=== PATIENT | female | born 1940 | race Caucasian/White ===

== ENCOUNTER → 2023-07-21 09:38 | Outpatient (REF) | payer MEDICARE, OTHER, SELFPAY ==
[2023-07-21 12:47] LABS: ALT (SGPT) 16 U/L (0-35); AST (SGOT) 24 U/L (14-36); Albumin 4.4 g/dl (3.5-5.0); Alkaline Phosphatase 79 U/L (38-126); Blood Urea Nitrogen 18 mg/dl (7-17); Calcium 9.6 mg/dl (8.4-10.2); Carbon Dioxide 24 mmol/L (22-30); Chloride 104 mmol/L (98-107); Glucose 84 mg/dl (70-99); HDL Cholesterol 71 mg/dl; LDL Cholesterol, Calculated 101 mg/dl; Potassium 4.4 mmol/L (3.5-5.1); Sodium 137 mmol/L (135-145); Total Bilirubin 0.8 mg/dl (0.2-1.3); Total Cholesterol 194 mg/dl (50-199); Total Protein 6.6 g/dl (6.3-8.2); Triglyceride 114 mg/dl (10-149); Very Low Density Lipoprotein 22 mg/dl (0-30); eGFR 50.48
== END ==
LOC: HWLAB 09:38
PROVIDERS: ATTENDING PHYSICIAN Family Medicine
DX: E78.2 Mixed hyperlipidemia (principal); R73.01 Impaired fasting glucose
CPT/HCPCS: 36415; 80053; 80061

== ENCOUNTER → 2024-02-08 09:58 | Outpatient (REF) | payer MEDICARE, OTHER, SELFPAY ==
[2024-02-08 16:26] LABS: Urine Albumin Trace (Neg - Trace); Urine Bilirubin 1+ (Negative); Urine Character Very Cloudy (Clear); Urine Color Yellow; Urine Glucose Negative (Negative); Urine Ketone Trace (Negative); Urine Leukocyte 2+ (Negative); Urine Nitrite Negative (Negative); Urine Occult Blood 1+ (Negative); Urine Specific Gravity 1.025 (<1.030); Urine Urobilinogen Negative (Neg - 1+)
[2024-02-08 16:49] LABS: Urine Amorphous Seen; Urine Bacteria Few (Negative); Urine Red Blood Cell 0-2 /HPF (0-2); Urine Squamous Cell 26-30 /LPF (Few); Urine Urothelial Cell 0-2 /LPF (FEW); Urine White Cell 50-60 /HPF (0-5)
== END ==
LOC: HWLAB 09:58
PROVIDERS: ATTENDING PHYSICIAN Family Medicine
DX: N30.91 Cystitis, unspecified with hematuria (principal)
CPT/HCPCS: 36415; 81003; 81015; 87086

== ENCOUNTER 2024-04-10 09:37 | Inpatient (IN) | payer MEDICARE, OTHER, SELFPAY ==
[2024-04-09] VITALS (12 sets, daily range): BP systolic 116–182; BP diastolic 45–98; BMI 26.5; BMI 25.6
--- NOTE | 2024-04-09 11:04 | EDRN ---
Noted on arrival several bruises on L arm from EMS IV attempts Per Jeannine SHIN.
[2024-04-09 11:06] LABS: % Basophils 0.5 % (0-2); % Eosinophils 0.2 % (0-6); % Immature Granulocytes 0.2 % (0-0.5); % Lymphocytes 9.8 % (20.5-51.1); % Monocytes 4.3 % (1.7-9.3); Absolute Basophils 0.1 10^3/uL (0-0.2); Absolute Lymphocytes 0.9 10^3/uL (1.2-3.4); Absolute Monocytes 0.4 10^3/uL (0.1-0.6); Absolute Neutrophils 8.1 10^3/uL (1.4-6.5); Hematocrit 38.3 % (37.0-47.0); Hemoglobin 13.2 g/dL (12.0-16.0); Mean Corp Hgb Conc. 34.5 g/dL (33.0-37.0); Mean Corpuscular Volume 84.2 fL (81.0-99.0); Mean Platelet Volume 8.9 fL (7.4-10.4); Nucleated Red Blood Cells % 0 %; Platelet Count 168 10^3/uL (130-400); Red Blood Cell Count 4.55 10^6/uL (4.20-5.40); Red Cell Dist. Width 13.6 % (11.5-14.5); White Blood Cell Count 9.5 10^3/uL (4.8-10.8)
[2024-04-09 11:17] LABS: ALT (SGPT) 17 U/L (0-35); AST (SGOT) 26 U/L (14-36); Albumin 4.1 g/dl (3.5-5.0); Alkaline Phosphatase 67 U/L (38-126); Blood Urea Nitrogen 19 mg/dl (7-17); Calcium 9.7 mg/dl (8.4-10.2); Carbon Dioxide 25 mmol/L (22-30); Chloride 104 mmol/L (98-107); Glucose 105 mg/dl (70-99); Potassium 4.2 mmol/L (3.5-5.1); Sodium 139 mmol/L (135-145); Total Bilirubin 0.9 mg/dl (0.2-1.3); Total Protein 6.1 g/dl (6.3-8.2); eGFR 50.17
[2024-04-09 12:21] LABS: Urine Albumin Trace (Neg - Trace); Urine Bilirubin Negative (Negative); Urine Character Clear (Clear); Urine Glucose 3+ (Negative); Urine Ketone Trace (Negative); Urine Leukocyte Trace (Negative); Urine Nitrite Negative (Negative); Urine Occult Blood 4+ (Negative); Urine Urobilinogen Negative (Neg - 1+)
[2024-04-09 12:22] LABS: Urine Color Yellow
[2024-04-09 12:35] LABS: Urine Bacteria Many (Negative); Urine Squamous Cell 16-20 /LPF (Few)
--- NOTE | 2024-04-09 13:21 | ED.GENMED ---
History of Present Illness
General
Chief Complaint: Weakness
Source: patient
Exam Limitations: none
Time Seen by Provider: 04/09/24 11:24
Nursing documentation reviewed up to this point in time: agreed with
History of Present Illness
History of Present Illness:
Patient presents to ED from senior care, secondary to weakness noted by staff member this morning. Per report and family, patient was unable to set up and ambulate independently, which she does routinely. Upon arrival, patient however, is without
any complaints. Denies headache. Denies dizziness. Denies loss of sensation or weakness. Denies recent change in medications or diet. Denies previous history of similar symptoms. Patient is currently taking Eliquis daily, secondary to
incidental thrombus noted in her heart during echocardiogram.
Past History
Past History
ED Past Medical History: HTN and Hypercholesterolemia
ED Past Surgical History: Orthopedic
Social History
Tobacco: Non-smoker
Alcohol: Occasional
Drug: None
Personal:
Living: with family
Employment: Retired
Review of Systems
Review of Systems
Allergies reviewed?: Yes
All Other Systems: ROS reviewed and negative except as documented in HPI and ROS
Constitutional: Reports no symptoms; Denies fever
Respiratory: Reports no symptoms
Cardiac: Reports no symptoms
ABD/GI: Reports no symptoms
Musculoskeletal: Reports no symptoms
Skin: Reports no symptoms
Neurological: Reports weakness
Phy Exam
Physical Exam
Physical Exam:
Physical Exam
General: no apparent distress, not acutely ill. afebrile
Head: nc/at. eomi
Neck: supple. normal range of motion.
Heart: s1/s2 regular rate and rhythm, no murmur. equal radial pulses.
Lungs: no acute respiratory distress. clear bilaterally
Abdomen: normal bowel sounds. not tender.
Neuro: alert and oriented. no focal neurological deficits. normal speech.
Skin: no rash
Psychiatric: well kept. interactive and cooperative
Extremities: no edema. no calf tenderness.
Course
Orders/Labs/Results
Orders:
Orders
04/09/24
DIETARY CONSULT Routine
Reason for Consult: decreased appetite
04/09/24 10:47
Electrocardiogram (*1) Urgent
Reason for Study: Fatigue / Weakness
EKG- Treatment ONCE
04/09/24 10:59
CMP [Comprehensive Metabolic Panel] Urgent
Complete Blood Count/With Diff Urgent
Troponin I Urgent
04/09/24 12:12
Urinalysis Reflex To Culture Urgent
Date Specimen was Collected: 04/09/24
Time Specimen was Collected: 12:11
Urine Microscopic Reflex Cult Urgent
Urine Culture Urgent
KATIE Source: U
Specimen Description:
Date Specimen was Collected: 04/09/24
Time Specimen was Collected: 12:11
04/09/24 13:29
CT Head W/o Iv Contrast Urgent
Comment:
Reason For Exam: mental status change with weakness
0.9% Sodium Chloride 500 ml [Nss] 500 ml IV BOLUS
CefTRIAXone [Rocephin] 1,000 mg IV NOW STA
04/09/24 Dinner
Cholesterol Lowering
At Your Request: Non-Participating
Fluid Restriction: 1920 mL/day (64 oz)
Cholesterol Lowering: Sodium, 2 Gram
04/09/24 16:32
Admit/Transfer Patient As Directed
Co-Sign Provider:
Level of Care: Observation services
Assign to:: Telemetry
Physician / Group: Dr. Stevan Perez/Hospitalists
Diagnosis: Generalized Weakness, Trouble with Speech
Reason for Telemetry: Arrhythmia
Date to Stop Telemetry: 04/12/24
Time to Stop Telemetry: 11:00
CR Chest - 2 Views Urgent
Comment:
Reason For Exam: Crackles on exam?
04/09/24 16:36
PRN Pain Medication Management As Directed
May give lesser potent ordered pain med per pt: Yes
preference::
Protocol:: Medication orders for pain may be administered in a
manner that supports deferring to patient preference
when the pt is:
- Requesting an ordered lesser potent pain medication.
Least to most potent pain medications are defined
as: acetaminophen < NSAID < tramadol < opioids
(morphine, oxycodone, hydromorphone).
- Requesting a lesser dose of the same medication IF
ORDERED.
- Requesting a less intrusive route of administration
if both routes are prescribed by the provider (PO <
IV).
04/09/24 16:38
Code Status As Directed
Resuscitation Status: Full Code
04/09/24 16:51
Neurological Checks As Directed
Frequency: q4h
04/09/24 17:58
COVID-19 Antigen Routine
Source: Nasal Swab
Influenza A+B Rapid Molecular Routine
KATIE Source: Nasal Swab
Specimen Description:
04/09/24 18:00
Cefepime HCl [Maxipime] 1,000 mg IV Q24H
Sterile Water [Sterile Water For Injection] 10 ml IV Q24H
04/09/24 18:06
NT-proBNP Urgent
Troponin I Q6H
04/09/24 19:28
Acetaminophen [Tylenol] 325 mg PO Q6HPRN PRN
Atorvastatin [Lipitor] 40 mg PO QPM
Bisacodyl [Dulcolax] 10 mg RECTAL [id number] PRN
Docusate W/Senna [Senokot-S] 1 tablet PO BIDPRN PRN
Polyethylene Glycol Powder [Miralax] 17 grams PO DAILYPRN PRN
Spironolactone [Aldactone] 25 mg PO QPM
Zinc Oxide 20% [Zinc Oxide Ointment] 1 applic TOPICAL TIDPRN PRN
04/09/24 19:28
Activity As Directed
Activity Level: As Tolerated
Intake/ Output As Directed
Frequency: q12h
Pneumatic Compression Sleeves As Directed
Type: Knee high
Vital Signs As Directed
Frequency: Per unit guidelines
Weight As Directed
Frequency: Daily
DX Deep Vein Thrombosis Video Routine
04/09/24 19:29
INFECTIOUS DISEASE CONSULT Routine
Consulting Provider: Isidra Gaytan
Was physician already notified: Yes
Reason for consult: Confusion. Concern for UTI. H/o Pseudomonas. COVID.
04/09/24 19:39
Zinc Oxide 20% [Zinc Oxide Ointment] See Dose Instructions TOPICAL TIDPRN PRN
04/09/24 20:00
Apixaban [Eliquis] 5 mg PO BID
Carvedilol [Coreg] 12.5 mg PO BID
Flush (0.9% Sodium Chloride) [Flush (Nss)] See Dose Instructions IV PER PROTOCOL
Zinc Oxide 20% [Zinc Oxide Ointment] See Dose Instructions TOPICAL BID
04/09/24 20:14
Ot Screening Request from [facility] Routine
Pt Screening Request from [facility] Routine
Speech Screening from [facility] Routine
04/09/24 20:29
MRSA Screen Routine
KATIE Source: Nose
Specimen Description:
04/09/24 22:00
Latanoprost [Xalatan Ophthalmic Solution] 1 drop BOTH EYES HS
Melatonin 5 mg PO HS
04/09/24 22:46
Troponin I Q6H
04/10/24 04:42
Basic Metabolic Panel IN AM
Complete Blood Count/With Diff IN AM
Magnesium IN AM
Troponin I Q6H
04/10/24 08:00
Dapagliflozin [Farxiga] 10 mg PO DAILY
Lisinopril [Zestril] 40 mg PO DAILY
04/10/24 08:17
Request for Physical Therapy [NOTICE] Routine
04/10/24 08:22
Request for Occupational Therapy [NOTICE] Routine
04/10/24 10:00
Cefepime HCl [Maxipime] 1,000 mg IV Q12H
04/10/24 10:53
Troponin I Q6H
04/10/24 12:00
CefTRIAXone [Rocephin] 1,000 mg IV Q24H
Sterile Water [Sterile Water For Injection] 10 ml IV Q24H
04/11/24 06:00
Basic Metabolic Panel IN AM
Complete Blood Count/With Diff IN AM
Magnesium IN AM
04/12/24 06:00
Basic Metabolic Panel IN AM
Complete Blood Count/With Diff IN AM
04/12/24 11:00
DC Protocol for Telemetry ONCE
04/13/24 06:00
Basic Metabolic Panel IN AM
Complete Blood Count/With Diff IN AM
Abnormal Lab Results
04/09/24 04/09/24 04/09/24
10:59 12:12 17:58
RBC
Hgb
Hct
Absolute Neuts (auto) 8.1 H 10^3/uL
(1.4-6.5)
Absolute Lymphs (auto) 0.9 L 10^3/uL
(1.2-3.4)
Neutrophils % 85.0 H %
(42.2-75.2)
Lymphocytes % 9.8 L %
(20.5-51.1)
Carbon Dioxide
BUN 19 H mg/dl
(7-17)
Creatinine 1.1 H mg/dL
(0.6-1.0)
Glucose 105 H mg/dl
(70-99)
Troponin I
Total Protein 6.1 L g/dl
(6.3-8.2)
Urine Ketones Trace A
(Negative)
Ur Occult Blood Reflex 4+ A
(Negative)
Leukocyte Esterase Rfl Trace A
(Negative)
Urine RBC 3-6 A /HPF
(0-2)
Urine Bacteria (Reflex) Many A
(Negative)
Urine Glucose 3+ A
(Negative)
SARS-CoV-2 Antigen Positive A
(Negative)
04/09/24 04/09/24 04/10/24
18:06 22:46 04:42
RBC 4.12 L 10^6/uL
(4.20-5.40)
Hgb 11.6 L g/dL
(12.0-16.0)
Hct 34.7 L %
(37.0-47.0)
Absolute Neuts (auto)
Absolute Lymphs (auto)
Neutrophils %
Lymphocytes %
Carbon Dioxide 20 L mmol/L
(22-30)
BUN
Creatinine
Glucose
Troponin I 0.090 H* D ng/ml 0.080 H* ng/ml 0.060 H* ng/ml
Total Protein
Urine Ketones
Ur Occult Blood Reflex
Leukocyte Esterase Rfl
Urine RBC
Urine Bacteria (Reflex)
Urine Glucose
SARS-CoV-2 Antigen
04/10/24 04:42
04/10/24 04:42
Vital Signs
Initial and Last Documented VS:
Initial Vital Signs
Temp Pulse Resp BP Pulse Ox
98.6 F 76 16 172/87 99
04/09/24 10:42 04/09/24 10:42 04/09/24 10:42 04/09/24 10:42 04/09/24 10:42
Last Documented Vital Signs
Temp Pulse Resp BP Pulse Ox
99.6 F 79 16 131/57 97
04/10/24 11:25 04/10/24 11:25 04/10/24 11:25 04/10/24 11:25 04/10/24 11:25
MDM/Problems Addressed
MDM/Problems Addressed:
Pt with profound weakness, generalized and unable to stand up, which is change from her baseline, according to family at bedside. Possible dehydration vs uti, vs less likely cva despite Eliquis. As such, pt will be admitted for further evaluation
and treatment, including ivf/iv abx and possible neurology evaluation, if symptoms persist.
*Critical Care Note
Total Time (30-74mins, 75-104mins- exclusive of procedures): Not Applicable
ED Attending Note
-
Portions of this chart may have been created with voice recognition software.� Occasional wrong word or��sound alike� substitutions may have occurred due to the inherent limitations of voice recognition software.
Discharge Plan
Departure
Patient Disposition: Admit
Date of Disposition: 04/09/24
Time of Disposition: 14:42
Presentation/result/management discussed w/ accepting MD/DO: Hospitalist
Discharge Problem:
Weakness
Interventions
Interventions:
*Risk Screen - Suicide Last Done: 04/09/24 10:42
*General Assessment Last Done: 04/09/24 10:42
*Neglect/Abuse Screening Last Done: 04/09/24 10:42
ED- Fall Risk Assessment Last Done: 04/09/24 12:00
*ED COVID-19 Vaccine History Last Done: 04/09/24 10:42
*Nursing Disposition Last Done: 04/09/24 19:15
ED- Cardiac Assessment Last Done: 04/09/24 12:00
ED- Neurological Assessment Last Done: 04/09/24 12:00
ED- Pulmonary Assessment Last Done: 04/09/24 12:00
Discharge Date and Time
Discharge Date/Time: 04/09/24 19:16
--- NOTE | 2024-04-09 13:33 | EDRN ---
This RN and [place] [facility] PCT attempted to walk pt. Pt was unable to stand on her own away from walker or move her feet. Pt kept leaning on stretcher and unable to move. Pt was too weak. Dr. Liu informed.
[2024-04-09] MEDS: NSS 500 IV (14:08)
[2024-04-09] MEDS: ROCEPHIN 1000 MG IV (14:10)
--- NOTE | 2024-04-09 15:18 | HPS.HSE ---
Addendum entered and electronically signed by Stevan Perez MD 04/09/24 19:44:
I just spoke via [employer] with on-call Infectious Disease (ID), and based on our conversation, ID recommended that Ceftriaxone instead of Cefepime can be continued for UTI for now (have switched Cefepime to Ceftriaxone), and no treatment indicated
for patient's COVID at this time. ID assistance appreciated.
Original Note:
Family Physician
-
Family Physician: Sean Ta
Chief Complaint
-
Generalized Weakness
History of Present Illness
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
January 2024 [facility]), HFrEF (sees Dr. Cortez outpatient -- per patient's family, patient had EF 35% to 40%), hyperlipidemia, hypertension, urinary incontinence and glaucoma, presented with generalized weakness since this
morning. Per patient's family, patient was unable to sit up and ambulate with a walker (at baseline she functions at times independently even without a walker sometimes, even though she is supposed to use a walker). Patient reported urinary
frequency but denied any other complaints on review of systems. No chest pain, SOB, numbness, tingling or any other complaints. Patient's family said she is having trouble producing words in the past few hours.
Medical History
Past Medical History
Past Medical History: Reports Other (As per HPI above)
Past Surgical History: Reports Orthopedic
Social History
Tobacco: Non-smoker
Alcohol: Occasional
Drug: None
Family History
Family History: Not pertinent
Allergies / Home Medications
Allergies reflects when Allergies were last updated in [employer]
Home Medications with original date entered in [employer]
Allergy/Medication List:
Allergies
Allergy/AdvReac Type Severity Reaction Status Date / Time
No Known Drug Allergies Allergy NA Verified 11/16/20 18:31
Home Medications
acetaminophen 325 mg tablet (Tylenol) 325 mg PO Q6HPRN PRN mild pain 04/09/24
apixaban 5 mg tablet (Eliquis) 5 mg PO BID 04/09/24
atorvastatin 40 mg tablet 40 mg PO QPM 04/09/24
carvedilol 12.5 mg tablet (Coreg) 12.5 mg PO BID 04/09/24
dapagliflozin propanediol 10 mg tablet (Farxiga) 10 mg PO DAILY 04/09/24
latanoprost 0.005 % eye drops 1 drp BOTH EYES HS 04/09/24
lisinopril 40 mg tablet 40 mg PO DAILY 04/09/24
melatonin 5 mg tablet 5 mg PO HS 04/09/24
spironolactone 25 mg tablet 25 mg PO QPM 04/09/24
zinc oxide 20 % topical ointment 1 applic topical BID sacrum/buttock 04/09/24
zinc oxide 20 % topical ointment 1 applic topical TIDPRN PRN sacrum/buttock 04/09/24
Review of Systems
-
A 12 point ROS was completed and negative except as noted: Yes
Physical Exam
Vital Signs
Vital Signs
Temp Pulse Resp BP Pulse Ox
98.6 F 69 17 165/61 96
04/09/24 10:42 04/09/24 14:00 04/09/24 14:00 04/09/24 14:00 04/09/24 14:56
Physical Exam
General: No Apparent Distress and Comfortable
HEENT: NormoCephalic and Moist mucous membranes
Respiratory: Crackles (Faint to Mild, bilaterally)
Cardiac: S1/S2
GI: Soft, Non Tender and Normal Bowel Sounds
Musculoskeletal: No Cyanosis and No Edema
Skin: Warm and Dry
Neuro: Awake, Alert and Other (Slow speech, trouble saying words. Provides some answers, but at other times, does not answer questions. Cranial Nerves grossly intact, upper extremity strength 4/5 bilaterally, patient unable to follow commands to
move lower extremities -- lower extremity weakness present bilaterally)
Psych: Calm and Confused
Laboratory Results
-
04/09/24 10:59
04/09/24 10:59
Laboratory Results
Total Bilirubin 0.9 mg/dl (0.2-1.3) 04/09/24 10:59
AST 26 U/L (14-36) 04/09/24 10:59
ALT 17 U/L (0-35) 04/09/24 10:59
Alkaline Phosphatase 67 U/L (38-126) 04/09/24 10:59
Troponin I 0.020 ng/ml 04/09/24 10:59
Impression/Plan
-
Assessment/Plan
Presentation with Generalized Weakness
Slow Speech/Trouble Bringing Words
Concern for UTI (patient reported urinary frequency)
History of Pseudomonas in Urine Culture
History of UTI
Mild TME (with history of
-Cefepime given history of Pseudomonas in the urine
-Follow urine cultures
-Check CXR
-Check COVID and Flu tests
-ProBNP, troponins
-Neurology consulted given lower extremity weakness and speech difficulties
-PT/OT
Recent history hospitalization at [facility] (after being found down on the floor) and rhabdomyolysis
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
-Continue Eliquis
HFrEF (sees Dr. Cortez outpatient -- per family was told EF 35% to 40%)
Ischemic Cardiomyopathy
Coronary Artery Disease
-Continue home goal-directed medical therapy
-Daily weights
-I's and O's
-Consider cardiology consult if needed
Chronic Kidney Disease
Elevated Creatinine
-Cr 1.1 today
-Minimize/avoid nephrotoxic medications
-Monitor BMP
History of Hypercalcemia
-Calcium normal today
Impaired Fasting Glucose
-Monitor blood glucose
Hyperlipidemia
-Continue home Atorvastatin
Hypertension
-Continue home Coreg, Lisinopril and Aldactone
Urinary incontinence
-Bladder scans protocol
Glaucoma
-Continue outpatient Latanoprost
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
Wrist OA
Left Shoulder Pain
Rotator Cuff Arthropathy of Left Shoulder
Disease of Gallbladder?
DVT Prophylaxis: Eliquis
Code Status: Full Code
[2024-04-09 18:33] LABS: COVID-19 Antigen Positive (Negative)
--- NOTE | 2024-04-09 18:40 | EDRN ---
Pt is COVID +.
--- NOTE | 2024-04-09 18:45 | EDRN ---
Family notified pt is COVID + at this time. A TT about COVID + result sent to Dr. Perez at this time also in note about pt's increasing confusion.
[2024-04-09 18:50] LABS: NT-proBNP 5840 pg/ml
--- NOTE | 2024-04-09 18:52 | EDRN ---
troponin 0.090 result was just TT'd to Dr. Perez.
[2024-04-09] MEDS: LIPITOR 40 MG PO (20:32)
[2024-04-09] MEDS: COREG 12.5 MG PO (20:32)
[2024-04-09] MEDS: ELIQUIS 5 MG PO (20:32)
[2024-04-09] MEDS: ALDACTONE 25 MG PO (20:32)
[2024-04-09] MEDS: ZINC OXIDE OINTMENT 1 APPLIC TOPICAL (22:39)
[2024-04-09] MEDS: XALATAN OPHTHALMIC SOLUTION 1 DROP BOTH EYES (22:40)
[2024-04-09] MEDS: MELATONIN PO (22:40)
[2024-04-10] VITALS (8 sets, daily range): BP systolic 105–145; BP diastolic 45–74; PULSE 78; O2SAT 95–96; BMI 25.4
[2024-04-10 05:12] LABS: % Basophils 0.5 % (0-2); % Eosinophils 0.3 % (0-6); % Immature Granulocytes 0.3 % (0-0.5); % Lymphocytes 25.7 % (20.5-51.1); % Neutrophils 67.2 % (42.2-75.2); Absolute Lymphocytes 1.6 10^3/uL (1.2-3.4); Absolute Monocytes 0.4 10^3/uL (0.1-0.6); Absolute Neutrophils 4.3 10^3/uL (1.4-6.5); Hematocrit 34.7 % (37.0-47.0); Hemoglobin 11.6 g/dL (12.0-16.0); Mean Corp Hgb Conc. 33.4 g/dL (33.0-37.0); Mean Corpuscular Hgb 28.2 pg (27.0-31.0); Mean Corpuscular Volume 84.2 fL (81.0-99.0); Mean Platelet Volume 9.7 fL (7.4-10.4); Nucleated Red Blood Cells % 0 %; Platelet Count 147 10^3/uL (130-400); Red Blood Cell Count 4.12 10^6/uL (4.20-5.40); Red Cell Dist. Width 13.7 % (11.5-14.5); White Blood Cell Count 6.4 10^3/uL (4.8-10.8)
[2024-04-10 05:36] LABS: Blood Urea Nitrogen 15 mg/dl (7-17); Calcium 8.7 mg/dl (8.4-10.2); Carbon Dioxide 20 mmol/L (22-30); Chloride 107 mmol/L (98-107); Estimated Creatinine Clearance 37 ml/min; Glucose 92 mg/dl (70-99); Magnesium 1.6 mg/dl (1.6-2.3); Potassium 3.9 mmol/L (3.5-5.1); Sodium 137 mmol/L (135-145); eGFR 56.25
--- NOTE | 2024-04-10 09:30 | W.PN.HOSP.TC ---
Today's Communication/Plan
-
see A/P
Assessment / Plan
Assessment / Plan
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
January 2024 [facility]), HFrEF (sees Dr. Cortez outpatient- per patient's family, patient had EF 35% to 40%), hyperlipidemia, hypertension, urinary incontinence and glaucoma, presented with generalized weakness since the morning
of DOA.
Per patient's family, patient was unable to sit up and ambulate with a walker (at baseline she functions at times independently even without a walker, even though she is supposed to use a walker).
Patient reported urinary frequency but denied any other complaints.
Patient's family said she is having trouble producing words in the past few hours.
A/P:
# Generalized Weakness
# Acute metabolic encephalopathy with slow speech/trouble bringing words
# History of Pseudomonas UTI
Concern for UTI (patient reported urinary frequency)
Follow urine culture
Change ceftriaxone to cefepime
PT/OT eval
# COVID infection without hypoxia
COVID positive on admission 04/09
Flu negative. CXR NAD
daughter kindly declined Paxlovid at this time, which is reasonable
# Recent history hospitalization at [facility] (after being found down on the floor) and rhabdomyolysis
# Intracardiac thrombus in the heart (on Eliquis, diagnosed in January 2024 after being found on echo)
Continue Eliquis
# HFrEF (sees Dr. Cortez outpatient -- per family was told EF 35% to 40%)
# Ischemic Cardiomyopathy
# Coronary Artery Disease
Continue home goal-directed medical therapy
Daily weights
I's and O's
Consider cardiology consult if needed
# Chronic Kidney Disease stage 3
# Impaired Fasting Glucose
Monitor blood glucose
# Hyperlipidemia
Continue home Atorvastatin
# Hypertension
Continue home Coreg, Lisinopril and Aldactone
# Urinary incontinence
Bladder scans protocol
# Glaucoma
Continue outpatient Latanoprost
DVT Prophylaxis: Eliquis
Code Status: Full Code
updated daughter on the phone
Anticipated Discharge: 24 - 48 hours
Subjective/Interval History
-
Date of Service: April 10, 2024
Objective Data
-
Labs:
Laboratory Results
04/10/24
04:42
WBC 6.4
Hgb 11.6 L
Hct 34.7 L
Plt Count 147
Sodium 137
Potassium 3.9
Chloride 107
Carbon Dioxide 20 L
BUN 15
Creatinine 1.0
Glucose 92
Calcium 8.7
Vital Signs:
Vital Signs
Temp Pulse Resp BP Pulse Ox
36.9 C 66 16 145/57 97
04/10/24 07:40 04/10/24 07:40 04/10/24 07:40 04/10/24 07:40 04/10/24 07:40
I&O
04/09/24 04/10/24 04/11/24
06:59 06:59 06:59
Intake Total 240 / 240
Balance 240 / 240
Review of Systems
-
All other systems: Reviewed and negative
Physical Exam
-
General: Well Developed, Well Nourished, No Apparent Distress, Comfortable and Conversant; Negative Respiratory Distress
HEENT: Normocephalic, Atraumatic, Nose Appears Normal and Ears Appear Normal; Negative Oxygen
Respiratory: Clear to Auscultation and Non Labored Respirations; Negative Accessory Resp Muscle Use
Cardiac: Regular Rhythm and S1/S2
GI: Soft, Nontender, Nondistended and Normal Bowel Sounds
Skin: Warm and Dry
Neuro: Awake and Alert
Psych: Calm
Data Reviewed
-
Diagnostic Radiology: Report Reviewed by me
Labs: Labs Reviewed by me
--- NOTE | 2024-04-10 09:54 | CON.NEURO ---
Neuro Assessment/Plan
Assessment
Acute onset generalized weakness and difficulty with speech attributed by the patient to cough
Most likely diagnosis is toxic metabolic encephalopathy
Plan
Continue supportive care
Rehabilitation evaluations
Consider more aggressive evaluations in the form of note puncture should the patient have a decline in mental status
Patient will require neurosurgical intervention for the patient's small sized frontal meningioma; would reimage in 1 year by means of MRI of the brain without contrast
We will follow as needed.
Consultation
Order
Date of Consultation: 04/10/24
Requesting Provider: Hospitalist
Reason for Consult: Generalized weakness
Subjective/Objective
Subjective Data
Date of Service: April 10, 2024
Patient presented to this hospital with a sense of generalized and difficulty with word production while coughing symptoms began 4 days prior to admission at which time the patient described her self is developing an acute cough. Increasing
difficulty with ambulation requiring greater use of assistive devices. The patient herself indicates that there were no other significant associated symptoms. She feels improved since presentation to this hospital.
Objective Data
Vital Signs
Temp Pulse Resp BP Pulse Ox
36.9 C 66 16 145/57 97
04/10/24 07:40 04/10/24 07:40 04/10/24 07:40 04/10/24 07:40 04/10/24 07:40
Lab Results
04/10/24 04:42
04/10/24 04:42
Sodium 137 mmol/L (135-145) 04/10/24 04:42
Potassium 3.9 mmol/L (3.5-5.1) 04/10/24 04:42
BUN 15 mg/dl (7-17) 04/10/24 04:42
Glucose 92 mg/dl (70-99) 04/10/24 04:42
Calcium 8.7 mg/dl (8.4-10.2) 04/10/24 04:42
Fjy-M-Qjyglrhlrap Pept 5840 pg/ml 04/09/24 18:06
Patient Allergies
No Known Drug Allergies Allergy (Verified 11/16/20 18:31)
NA
Review of Systems
-
History Source: Patient
All other systems: Reviewed and negative
Neuro: Negative Dizzy or Headache
Physical Exam
-
General: No Apparent Distress and Appears Stated Age
Eyes: Round OU, [place] Conjunctivae and No Ptosis
HEENT: Anicteric and Moist Mucous Membranes
Neck: Full Range of Motion
Respiratory: No Dyspnea
Cardiac: No JVD
GI: Non-distended
Skin: Unremarkable
Extremities: No Clubbing, No Cyanosis and No Edema
Psych: Intact Judgement/Insight
Extended Neurological Exam
Mood & Affect: Mood Unremarkable and Affect Unremarkable
Attention Span & Concentration: Awake, Alert, Interactive and Moderate Difficulty with 2 Step Request
Memory: Able to Recall (Month and year)
Tremor: Head Tremor Absent, Amplitude (Low), Intermittent and With Action; Negative Hand Tremor Absent, Continuous, Frequent or At Rest
Involuntary Movement: None
Speech: Quality Unremarkable and Mildly Reduced Output
Cranial Nerve II: Left Eye: Pupillary Size Unremarkable and Visual Gram[place] Intact
Cranial Nerve II: Right Eye: Pupillary Size Unremarkable and Visual Gram[place] Intact
Cranial Nerves III, IV, : Extraocular Movement: Extraocular Movement Full in all Directions
Cranial Nerve VII: Facial Symmetry: Normal Facial Symmetry
Cranial Nerve VIII: Hearing: Unremarkable Hearing to Normal Conversational Volume
Cranial Nerve XI: Shoulder Shrug: Unremarkable
Muscle Strength, Overall: Full in Upper Extremities
Muscle Bulk & Tone: Bulk Unremarkable and Tone Unremarkable
Pronator Drift: No Drift in Upper Extremities
Deep Tendon Reflexes: Unremarkable Throughout
Touch Sensation: Unremarkable
Coordination: Uaxzrv-mazn-icfbng Testing Unremarkable
Data Reviewed
-
CT Head: Report Reviewed and Image Reviewed
Labs: Report Reviewed
Reviewed with: Physician and Patient
Old Records: Summarized
Medications
-
Active Medications
Generic Name Dose Route Start Last Admin
Trade Name Freq PRN Reason Stop Dose Admin
Acetaminophen 325 mg 04/09/24 19:28
Acetaminophen 325 Mg Tablet PO 05/07/24 19:27
Q6HPRN PRN
mild pain
Apixaban 5 mg 04/09/24 20:00 04/09/24 20:32
Apixaban (Eliquis) 5 Mg Tablet PO 05/07/24 19:59 5 mg
BID SREEDHAR Administration
Atorvastatin Calcium 40 mg 04/09/24 19:28 04/09/24 20:32
Atorvastatin (Lipitor) 40 Mg Tablet PO 05/07/24 19:27 40 mg
QPM SREEDHAR Administration
Bisacodyl 10 mg 04/09/24 19:28
Bisacodyl 10 Mg Rectal Suppository RECTAL 05/07/24 19:27
[id number] PRN
constipation
Carvedilol 12.5 mg 04/09/24 20:00 04/09/24 20:32
Carvedilol 12.5 Mg Tablet PO 05/07/24 19:59 12.5 mg
BID SREEDHAR Administration
Cefepime HCl 1,000 mg 04/10/24 10:00
Cefepime Hcl 1,000 Mg/11.3 Ml Vial IV
Q12H SREEDHAR
Dapagliflozin 10 mg 04/10/24 08:00
Dapagliflozin (Farxiga) 10 Mg Tablet PO 05/08/24 07:59
DAILY SREEDHAR
Latanoprost 1 drop 04/09/24 22:00 04/09/24 22:40
Latanoprost 0.005% (Ophthalmic Solution) 2.5 Ml Bottle BOTH EYES 05/07/24 21:59 1 drop
HS SREEDHAR Administration
Lisinopril 40 mg 04/10/24 08:00
Lisinopril 20 Mg Tablet PO 05/08/24 07:59
DAILY SREEDHAR
Melatonin 5 mg 04/09/24 22:00 04/09/24 22:40
Melatonin 5 Mg Tablet PO 05/07/24 21:59 Not Given
HS SREEDHAR
Polyethylene Glycol 17 grams 04/09/24 19:28
Polyethylene Glycol Powder 17 Grams Packet PO 05/07/24 19:27
DAILYPRN PRN
constipation
Senna/Docusate Sodium 1 tablet 04/09/24 19:28
Docusate W/Senna (Rosa-Colace) Tablet PO 05/07/24 19:27
BIDPRN PRN
constipation
Sodium Chloride 0 flush 04/09/24 20:00
Sodium Chloride 0.9% (Flush) Syringe IV 05/07/24 19:59
PER PROTOCOL SREEDHAR
Spironolactone 25 mg 04/09/24 19:28 04/09/24 20:32
Spironolactone 25 Mg Tablet PO 05/07/24 19:27 25 mg
QPM SREEDHAR Administration
Sterile Water 10 ml 04/10/24 10:00
Sterile Water For Injection 10 Ml Vial IV 05/08/24 09:59
Q12H SREEDHAR
Zinc Oxide 0 applic 04/09/24 20:00 04/09/24 22:39
Zinc Oxide 20% (Ointment) 30 Gram Tube TOPICAL 05/07/24 19:59 1 applic
BID SREEDHAR Administration
Zinc Oxide 0 applic 04/09/24 19:39
Zinc Oxide 20% (Ointment) 30 Gram Tube TOPICAL 05/07/24 19:27
TIDPRN PRN
sacrum/buttock
Home Medications
�Medication �Instructions �Recorded
acetaminophen 325 mg tablet 325 mg PO Q6HPRN PRN mild pain 04/09/24
(Tylenol)
apixaban 5 mg tablet (Eliquis) 5 mg PO BID 04/09/24
atorvastatin 40 mg tablet 40 mg PO QPM 04/09/24
carvedilol 12.5 mg tablet (Coreg) 12.5 mg PO BID 04/09/24
dapagliflozin propanediol 10 mg 10 mg PO DAILY 04/09/24
tablet (Farxiga)
latanoprost 0.005 % eye drops 1 drp BOTH EYES HS 04/09/24
lisinopril 40 mg tablet 40 mg PO DAILY 04/09/24
melatonin 5 mg tablet 5 mg PO HS 04/09/24
spironolactone 25 mg tablet 25 mg PO QPM 04/09/24
zinc oxide 20 % topical ointment 1 applic topical BID sacrum/buttock 04/09/24
zinc oxide 20 % topical ointment 1 applic topical TIDPRN PRN 04/09/24
sacrum/buttock
Past History
Past History
ED Past Medical History: CHF, HTN, Hypercholesterolemia and Other (Glaucoma, intracardiac thrombus, gait dysfunction, urinary incontinence)
ED Past Surgical History: Orthopedic
Social History
Tobacco: Non-smoker
Alcohol: Occasional
Drug: None
Personal:
Living: with family
Employment: Retired
Family History
Family History: Other (Reviewed and noncontributory)
[2024-04-10] MEDS: ELIQUIS 5 MG PO ×2 (09:55→20:06)
[2024-04-10] MEDS: ZESTRIL 40 MG PO (09:55)
[2024-04-10] MEDS: FARXIGA 10 MG PO (09:55)
[2024-04-10] MEDS: COREG 12.5 MG PO ×2 (09:56→20:06)
[2024-04-10] MEDS: ZINC OXIDE OINTMENT 1 APPLIC TOPICAL ×2 (10:01→20:07)
[2024-04-10] MEDS: MAXIPIME 1000 MG IV (10:02)
[2024-04-10] MEDS: STERILE WATER FOR INJECTION 10 ML IV (10:03)
--- NOTE | 2024-04-10 11:18 | CM ---
Reviewed the chart notes and spoke with the patient's daughter via telephone. The patient is Covid + and confused this admission. The patient recently moved into [facility] [place] (03/09/24). Prior to that the patient was living
independently. Patient sustained a fall mid January and had a stay at [facility] where she was then transferred to [facility] for rehab and ultimately placed at [facility]. Per daughter, the patient uses a rolling walker and
wheelchair. The patient has toilet and shower rails in the bathroom. CM continues to be available to patient/family and is monitoring medical plan for needs at discharge.
Plan: Discharge plans will depend on the patient's progress. Will need PT/OT evaluations to determine if patient is strong enough to return to [facility] or will she need SNF/rehab prior to returning.
[2024-04-10 11:45] LABS: Troponin I 0.038 ng/ml
--- NOTE | 2024-04-10 14:14 | W.PN.ID1 ---
Date of Service
Date of Service: April 10, 2024
Assessment / Plan
Mild Covid Infection
- had the most recent booster
- not hypoxemic
- confusion abating, midlly hoarse, otherwise no significant symptoms - discussed paxlovid could be given if dose of eliquis was dropped to 2.5 mg but limited efficacy - decreases symptoms by about 1 day, favor observation, family in agreement
UTI
AMS
- describes urgency to me
- remote h/o pseudomonal infection
- would avoid cefepime in patient with AMS, switched to zosyn, deescalate as able
Vital Signs / Physical Exam
Vital Signs
Vital Signs
Temp Pulse Resp BP Pulse Ox
99.6 F 79 16 131/57 97
04/10/24 11:25 04/10/24 11:25 04/10/24 11:25 04/10/24 11:25 04/10/24 11:25
Objective Data
Lab Data
Lab Results
04/10/24 04:42
04/10/24 04:42
Estimated Creat Clear 37 ml/min 04/10/24 04:42
Total Bilirubin 0.9 mg/dl (0.2-1.3) 04/09/24 10:59
AST 26 U/L (14-36) 04/09/24 10:59
ALT 17 U/L (0-35) 04/09/24 10:59
Alkaline Phosphatase 67 U/L (38-126) 04/09/24 10:59
Most recent labs reviewed.
Micro Results:
04/09/24 12:12 Urine Culture - Preliminary
Urine Gram negative bacilli
04/09/24 20:29 MRSA Screen - Pending
Nose
04/09/24 17:58 Influenza Types A & B (MAGDA) - Final
Nasal Swab Negative for Influenza A & B, NAAT
Negative results must be combined with clinical observations
and patient history.
Nucleic Acid Amplification test (NAAT)performed on the
[employer] platform.
[2024-04-10] MEDS: ZOSYN 50 IV ×2 (14:31→20:06)
[2024-04-10] MEDS: TYLENOL 325 MG PO (14:31)
--- NOTE | 2024-04-10 17:03 | CON.ID ---
Consultation
-
Date/Time Consultation Requested: 04/09/24 19:29
Date/Time Consultation Performed: 04/10/24 14:14
Requesting Provider:
Chief Complaint / Past History
Chief Complaint
AMS
History of Present Illness
Ms Rhodes is an 84 year old female with history of CKD, CHF, who presented here 04/09 for weakenss, inability to ambulate with walker, urinary frequency, mild hoarse voice. No dysuira or suprapubic tenderness. No cough, shortness of breath,
myalagias, or rash. Had her last covid booster several weeks ago.
Since arrival here she has been afebrile, bp stable, saturing well on room air, wbc 6.4, hgb 11.6, plt 147, L shift present on arrival now resolved, lymphocytopenia yesterday now resolved, cr initially 1.1 now 1.0, t bili 0.9, ast 26, alt 17 alk
phos 67, minimal troponinemia, covid ag positive, CXR no acute CP process. Has been put back on cefepime. My explanations for avoiding cefepime given CKD and AMS were not documented but remain real concerns. Her last episdoe of uti due to
pseudomonas is remote.
Past History
Additional Past Medical History:
intracardiac thrombus
CHF
rhabdomyolysis
Additional Past Surgical History:
orthopedic
Allergy History:
No Known Drug Allergies Allergy (Verified 11/16/20 18:31)
NA
Medications Reviewed: Yes
Social History
Tobacco: Non-Smoker
Alcohol: Occasional
Drug: None
Family History
Family History: Not Pertinent
Review of Systems
Review of Systems
General: Fever; Negative Chills
All systems: All other systems were reviewed and were negative
Vital Signs
Temp Pulse Resp BP Pulse Ox
99.2 F 64 16 115/45 96
04/10/24 15:30 04/10/24 15:30 04/10/24 15:30 04/10/24 15:30 04/10/24 15:30
Physical Exam
Physical Exam
Constitutional: No Acute Distress
Cardiovascular: Regular Rate and S1/S2; Negative Murmur or Rub
Pulmonary: Clear and Symmetric; Negative Wheezes, Rales or Rhonchi
Gastrointestinal: Soft, Non Tender, Non Distended and Normal Bowel Sounds
Genito-Urinary: Negative Suprapubic Tenderness or CVA Tenderness
Skin: Warm and Dry; Negative Rash or Jaundice
Neurological: Oriented (to person, not place or time)
Lab / Diagnostic Study Results
04/10/24 04:42
04/10/24 04:42
Abs Immat Gran (auto) 0.0 10^3/uL (0-0.05) 04/10/24 04:42
Absolute Neuts (auto) 4.3 10^3/uL (1.4-6.5) 04/10/24 04:42
Absolute Lymphs (auto) 1.6 10^3/uL (1.2-3.4) 04/10/24 04:42
Absolute Monos (auto) 0.4 10^3/uL (0.1-0.6) 04/10/24 04:42
Absolute Basos (auto) 0.0 10^3/uL (0-0.2) 04/10/24 04:42
Immature Gran % 0.3 % (0-0.5) 04/10/24 04:42
Neutrophils % 67.2 % (42.2-75.2) 04/10/24 04:42
Lymphocytes % 25.7 % (20.5-51.1) 04/10/24 04:42
Monocytes % 6.0 % (1.7-9.3) 04/10/24 04:42
Eosinophils % 0.3 % (0-6) 04/10/24 04:42
Basophils % 0.5 % (0-2) 04/10/24 04:42
Ur Squamous Epith Cells 16-20 /LPF (Few) 04/09/24 12:12
Microbiology Results
Micro:
04/09/24 12:12 Urine Culture - Preliminary
Urine Gram negative bacilli
04/09/24 20:29 MRSA Screen - Pending
Nose
04/09/24 17:58 Influenza Types A & B (MAGDA) - Final
Nasal Swab Negative for Influenza A & B, NAAT
Negative results must be combined with clinical observations
and patient history.
Nucleic Acid Amplification test (NAAT)performed on the
[employer] NOW platform.
Assessment / Plan
Mild Covid Infection
- had the most recent booster
- not hypoxemic
- confusion abating, midly hoarse, otherwise no significant symptoms - discussed paxlovid could be given if dose of eliquis was dropped to 2.5 mg but limited efficacy - decreases symptoms by about 1 day, favor observation, family in agreement
UTI
AMS
- describes urgency to me
- remote h/o pseudomonal infection
- would avoid cefepime in patient with AMS/CKD, switched to zosyndomitilacaljd as able
[2024-04-10] MEDS: LIPITOR 40 MG PO (17:55)
[2024-04-10] MEDS: ALDACTONE 25 MG PO (17:56)
[2024-04-10] MEDS: XALATAN OPHTHALMIC SOLUTION 1 DROP BOTH EYES (20:06)
[2024-04-10] MEDS: MELATONIN PO (22:27)
[2024-04-11] MEDS: ZOSYN 50 IV ×4 (01:44→20:24)
[2024-04-11 03:22] VITALS: BP 158/63
[2024-04-11 05:23] VITALS: BMI 25.2
[2024-04-11 06:31] LABS: % Basophils 0.5 % (0-2); % Eosinophils 0.5 % (0-6); % Immature Granulocytes 0.3 % (0-0.5); % Lymphocytes 18.5 % (20.5-51.1); % Monocytes 6.3 % (1.7-9.3); % Neutrophils 73.9 % (42.2-75.2); Absolute Lymphocytes 1.2 10^3/uL (1.2-3.4); Absolute Monocytes 0.4 10^3/uL (0.1-0.6); Absolute Neutrophils 4.7 10^3/uL (1.4-6.5); Hematocrit 38.4 % (37.0-47.0); Hemoglobin 12.6 g/dL (12.0-16.0); Mean Corp Hgb Conc. 32.8 g/dL (33.0-37.0); Mean Corpuscular Hgb 28.3 pg (27.0-31.0); Mean Corpuscular Volume 86.3 fL (81.0-99.0); Mean Platelet Volume 9.2 fL (7.4-10.4); Nucleated Red Blood Cells % 0 %; Platelet Count 154 10^3/uL (130-400); Red Blood Cell Count 4.45 10^6/uL (4.20-5.40); Red Cell Dist. Width 13.7 % (11.5-14.5); White Blood Cell Count 6.3 10^3/uL (4.8-10.8)
[2024-04-11 07:01] LABS: Blood Urea Nitrogen 19 mg/dl (7-17); Calcium 8.7 mg/dl (8.4-10.2); Carbon Dioxide 21 mmol/L (22-30); Chloride 104 mmol/L (98-107); Estimated Creatinine Clearance 34 ml/min; Glucose 85 mg/dl (70-99); Magnesium 1.8 mg/dl (1.6-2.3); Potassium 3.9 mmol/L (3.5-5.1); Sodium 138 mmol/L (135-145); eGFR 50.17
[2024-04-11 08:00] VITALS: BP 155/66
[2024-04-11] MEDS: FARXIGA 10 MG PO (08:52)
[2024-04-11] MEDS: ELIQUIS 5 MG PO ×2 (08:52→20:24)
[2024-04-11] MEDS: COREG 12.5 MG PO ×2 (08:53→20:24)
[2024-04-11] MEDS: ZESTRIL 40 MG PO (08:58)
[2024-04-11] MEDS: ZINC OXIDE OINTMENT 1 APPLIC TOPICAL ×2 (09:09→20:39)
--- NOTE | 2024-04-11 09:10 | W.PN.HOSP.TC ---
Addendum entered and electronically signed by Elizabeth Day MD 04/11/24 13:40:
# Nonischemic myocardial injury
# Metabolic Encephalopathy due to COVID/UTI
Original Note:
Today's Communication/Plan
-
see A/P
Assessment / Plan
Assessment / Plan
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
January 2024 [place] Hospitalization), HFrEF (sees Dr. Cortez outpatient- per patient's family, patient had EF 35% to 40%), hyperlipidemia, hypertension, urinary incontinence and glaucoma, presented with generalized weakness since the morning
of DOA.
Per patient's family, patient was unable to sit up and ambulate with a walker (at baseline she functions at times independently even without a walker, even though she is supposed to use a walker).
Patient reported urinary frequency but denied any other complaints.
Patient's family said she is having trouble producing words in the past few hours.
A/P:
# Generalized Weakness
# Acute metabolic encephalopathy with slow speech/trouble bringing up words, resolved
# History of Pseudomonas UTI
Concern for UTI (patient reported urinary frequency)
Follow urine culture
Changed cefepime to Zosyn per ID
PT/OT recc SNF
# COVID infection without hypoxia
COVID positive on admission 04/09, total isolation 10 days
Flu negative. CXR NAD.
daughter kindly declined Paxlovid at this time, which is reasonable
# Recent history hospitalization at [facility] (after being found down on the floor) and rhabdomyolysis
# Intracardiac thrombus in the heart (on Eliquis, diagnosed in January 2024 after being found on echo)
Continue Eliquis
# HFrEF (sees Dr. Cortez outpatient- per family was told EF 35% to 40%)
# Ischemic Cardiomyopathy
# Coronary Artery Disease
Continue home goal-directed medical therapy
Daily weights
I's and O's
Consider cardiology consult if needed
# Chronic Kidney Disease stage 3
# Impaired Fasting Glucose
Monitor blood glucose
# Hyperlipidemia
Continue home Atorvastatin
# Hypertension
Continue home Coreg, Lisinopril and Aldactone
# Urinary incontinence
Bladder scans protocol
# Glaucoma
Continue outpatient Latanoprost
DVT Prophylaxis: Eliquis
Code Status: Full Code
Dispo: SNF per PT
updated daughter on the phone 04/11
Anticipated Discharge: 24 - 48 hours
Subjective/Interval History
-
Date of Service: April 11, 2024
Objective Data
-
Labs:
Laboratory Results
04/11/24
06:16
WBC 6.3
Hgb 12.6
Hct 38.4
Plt Count 154
Sodium 138
Potassium 3.9
Chloride 104
Carbon Dioxide 21 L
BUN 19 H
Creatinine 1.1 H
Glucose 85
Calcium 8.7
Vital Signs:
Vital Signs
Temp Pulse Resp BP Pulse Ox
37.2 C 64 16 155/66 95
04/11/24 03:22 04/11/24 08:58 04/11/24 03:22 04/11/24 08:58 04/11/24 03:22
I&O
04/10/24 04/11/24 04/12/24
06:59 06:59 06:59
Intake Total 240 / 240 590 / 590
Balance 240 / 240 590 / 590
[2024-04-11] MEDS: MUCINEX 1200 MG PO ×2 (10:09→20:24)
--- NOTE | 2024-04-11 11:27 | W.PN.ID1 ---
Date of Service
Date of Service: April 11, 2024
Today's Communication
c/w zosyn - deescalate as able
Assessment / Plan
Mild Covid Infection
- had the most recent booster
- not hypoxemic
- confusion abating, mildly hoarse, otherwise no significant symptoms - paxlovid could be given if dose of eliquis was dropped to 2.5 mg but limited efficacy - decreases symptoms by about 1 day, favor observation, family in agreement
UTI
- describes urgency to me
- remote h/o pseudomonal infection
- c/w zosyn, nomiescalate as able
- qtc 434
AMS- resolved
- up in chair, oriented x3, with goal directed behavior
- attribute to uti
Chief Complaint
-: UTI and Other (covid)
Subjective / Review of Systems
continues to saturate well on room air
single fever yesterday afternoon
no events overnight
up in chair, oriented x3, with goal directed behavior
Vital Signs / Physical Exam
Vital Signs
Vital Signs
Temp Pulse Resp BP Pulse Ox
98.2 F 64 16 155/66 96
04/11/24 08:00 04/11/24 08:58 04/11/24 08:00 04/11/24 08:58 04/11/24 08:00
Physical Exam
Constitutional: No Acute Distress
Cardiovascular: Regular Rate and S1/S2; Negative Murmur or Rub
Pulmonary: Clear and Symmetric; Negative Wheezes or Rales
Gastrointestinal: Soft, Non Tender, Non Distended and Normal Bowel Sounds
Skin: Warm and Dry; Negative Rash or Jaundice
Neurological: AO x 3
Objective Data
Lab Data
Lab Results
04/11/24 06:16
04/11/24 06:16
Estimated Creat Clear 34 ml/min 04/11/24 06:16
Total Bilirubin 0.9 mg/dl (0.2-1.3) 04/09/24 10:59
AST 26 U/L (14-36) 04/09/24 10:59
ALT 17 U/L (0-35) 04/09/24 10:59
Alkaline Phosphatase 67 U/L (38-126) 04/09/24 10:59
Most recent labs reviewed.
today with minimal lymphocytopenia - 18% (normal 20%)
Micro Results:
04/09/24 12:12 Urine Culture - Preliminary
Urine Gram negative bacilli 2 morphotypes
04/09/24 20:29 MRSA Screen - Final
Nose No Methicillin Resistant Staphylococcus aureus isolated.
04/09/24 17:58 Influenza Types A & B (MAGDA) - Final
Nasal Swab Negative for Influenza A & B, NAAT
Negative results must be combined with clinical observations
and patient history.
Nucleic Acid Amplification test (NAAT)performed on the
[employer] platform.
[2024-04-11 12:00] VITALS: BP 124/56
--- NOTE | 2024-04-11 13:12 | PN.CDI ---
CDI
- -
CDI:
Physician Documentation Request
Admit Date: 04/10/24 09:37
Dear Doctor Barb,
Patient presented to ED for evaluation of weakness
04/10- hospitalist note states 'Acute metabolic encephalopathy with slow speech/trouble bringing words'
Neurology consulted and states 'Most likely diagnosis is toxic metabolic encephalopathy
In an attempt to clarify potentially conflicting documentation, please clarify the encephalopathy
Toxic Metabolic Encephalopathy
Metabolic Encephalopathy
Other
Use of terms such as suspected, likely, concern for, or probable (associated with a specific diagnosis that is being evaluated, monitored, or treated as if it exists) are acceptable and can be coded in the inpatient setting, when documented at the
time of discharge.
Thank you,
Hoda Martinez RN, BSN
CDI Specialist
tiger text
Please use your independent medical judgment in providing your response.
--- NOTE | 2024-04-11 13:25 | PN.CDI ---
CDI
- -
CDI:
Physician Documentation Request
Admit Date: 04/10/24 09:37
Dear Doctor Barb,
Patient presented to ED with evaluation of weakness. Found to be positive for COVID, concern for UTI.
Troponin results:
Laboratory Tests
04/09/24 04/09/24 04/09/24
10:59 18:06 22:46
Troponin I 0.020 0.090 H* D 0.080 H*
04/10/24 04/10/24
04:42 10:53
Troponin I 0.060 H* 0.038 H* D
Could you please provide a diagnosis that supports the above lab abnormalities and additional evaluation/ monitoring:
Nonischemic myocardial injury
Type II NH demand ischemia
Other
Use of terms such as suspected, likely, concern for, or probable (associated with a specific diagnosis that is being evaluated, monitored, or treated as if it exists) are acceptable and can be coded in the inpatient setting, when documented at the
time of discharge.
Thank you,
Hoda Martinez RN, BSN
CDI Specialist
tiger text
Please use your independent medical judgment in providing your response.
--- NOTE | 2024-04-11 14:52 | CM ---
Reviewed the chart notes and spoke with the patient's daughter via telephone. Discussed PT recommendation of SNF. Discussed with the daughter that Covid + status is a barrier to placement and that there are few facilities able/willing to accept a
Covid + patient. Permission received to send referrals out to area facilities that might take a Covid + patient. CM continues to be available to patient/family and is monitoring medical plan for needs at discharge.
Plan: Discharge to SNF/rehab once a bed found. No precert required.
[2024-04-11 16:00] VITALS: BP 166/81
[2024-04-11] MEDS: LIPITOR 40 MG PO (17:08)
[2024-04-11] MEDS: TYLENOL 325 MG PO (17:08)
[2024-04-11] MEDS: ALDACTONE 25 MG PO (17:09)
[2024-04-11 19:27] VITALS: BP 122/54
[2024-04-11] MEDS: XALATAN OPHTHALMIC SOLUTION 1 DROP BOTH EYES (20:24)
[2024-04-11] MEDS: MELATONIN 5 MG PO (20:24)
[2024-04-11 23:46] VITALS: BP 129/53
[2024-04-12] VITALS (7 sets, daily range): BP systolic 125–196; BP diastolic 63–92; BMI 25.4
[2024-04-12] MEDS: ZOSYN 50 IV ×2 (01:54→08:33)
[2024-04-12 06:16] LABS: % Basophils 0.5 % (0-2); % Eosinophils 3.4 % (0-6); % Immature Granulocytes 0.2 % (0-0.5); % Lymphocytes 29.4 % (20.5-51.1); % Monocytes 10.5 % (1.7-9.3); Absolute Eosinophils 0.2 10^3/uL (0-0.7); Absolute Lymphocytes 1.3 10^3/uL (1.2-3.4); Absolute Monocytes 0.5 10^3/uL (0.1-0.6); Absolute Neutrophils 2.5 10^3/uL (1.4-6.5); Hematocrit 36.1 % (37.0-47.0); Hemoglobin 12.1 g/dL (12.0-16.0); Mean Corp Hgb Conc. 33.5 g/dL (33.0-37.0); Mean Corpuscular Hgb 28.7 pg (27.0-31.0); Mean Corpuscular Volume 85.7 fL (81.0-99.0); Mean Platelet Volume 9.3 fL (7.4-10.4); Nucleated Red Blood Cells % 0 %; Platelet Count 146 10^3/uL (130-400); Red Blood Cell Count 4.21 10^6/uL (4.20-5.40); Red Cell Dist. Width 13.6 % (11.5-14.5); White Blood Cell Count 4.4 10^3/uL (4.8-10.8)
[2024-04-12 06:41] LABS: Calcium 8.6 mg/dl (8.4-10.2); Glucose 85 mg/dl (70-99); Potassium 3.8 mmol/L (3.5-5.1)
[2024-04-12 06:51] LABS: Blood Urea Nitrogen 19 mg/dl (7-17); Carbon Dioxide 20 mmol/L (22-30); Chloride 107 mmol/L (98-107); Estimated Creatinine Clearance 34 ml/min; Sodium 138 mmol/L (135-145); eGFR 50.17
[2024-04-12] MEDS: COREG 12.5 MG PO ×2 (08:32→19:53)
[2024-04-12] MEDS: MUCINEX 1200 MG PO ×2 (08:32→19:53)
[2024-04-12] MEDS: ELIQUIS 5 MG PO ×2 (08:33→19:53)
[2024-04-12] MEDS: FARXIGA 10 MG PO (08:33)
[2024-04-12] MEDS: ZINC OXIDE OINTMENT 1 APPLIC TOPICAL ×2 (08:33→19:53)
[2024-04-12] MEDS: ZESTRIL 40 MG PO (08:33)
--- NOTE | 2024-04-12 09:16 | W.PN.HOSP.TC ---
Today's Communication/Plan
-
dispo pending to SNF
Assessment / Plan
Assessment / Plan
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
January 2024 [place] [facility]ization), HFrEF (sees Dr. Cortez outpatient- per patient's family, patient had EF 35% to 40%), hyperlipidemia, hypertension, urinary incontinence and glaucoma, presented with generalized weakness since the morning
of DOA.
Per patient's family, patient was unable to sit up and ambulate with a walker (at baseline she functions at times independently even without a walker, even though she is supposed to use a walker).
Patient reported urinary frequency but denied any other complaints.
Patient's family said she is having trouble producing words in the past few hours.
A/P:
# Generalized Weakness
# Acute metabolic encephalopathy with slow speech/trouble bringing up words, resolved
# History of Pseudomonas UTI
Concern for UTI (patient reported urinary frequency), Urine culture with Klebsiella, sensitivity reviewed
s/p ceftriaxone/cefepime/Zosyn, completed treatment hence no further Abx needed
PT/OT recc SNF
# COVID infection without hypoxia
COVID positive on admission 04/09, total isolation 10 days
Flu negative. CXR NAD.
daughter kindly declined Paxlovid at this time, which is reasonable
# Recent history hospitalization at [facility] (after being found down on the floor) and rhabdomyolysis
# Intracardiac thrombus in the heart (on Eliquis, diagnosed in January 2024 after being found on echo)
Continue Eliquis
# HFrEF (sees Dr. Cortez outpatient- per family was told EF 35% to 40%)
# Ischemic Cardiomyopathy
# Coronary Artery Disease
Continue home goal-directed medical therapy
Daily weights
I's and O's
Consider cardiology consult if needed
# Chronic Kidney Disease stage 3
# Impaired Fasting Glucose
Monitor blood glucose
# Hyperlipidemia
Continue home Atorvastatin
# Hypertension
Continue home Coreg, Lisinopril and Aldactone
# Urinary incontinence
Bladder scans protocol
# Glaucoma
Continue outpatient Latanoprost
DVT Prophylaxis: Eliquis
Code Status: Full Code
Dispo: SNF per PT
DW ID
DW CM
updated daughter on the phone 04/11
total time spent 51 min
Anticipated Discharge: Within 24 hours
Subjective/Interval History
-
Date of Service: April 12, 2024
Objective Data
-
Labs:
Laboratory Results
04/12/24
05:39
WBC 4.4 L
Hgb 12.1
Hct 36.1 L
Plt Count 146
Sodium 138
Potassium 3.8
Chloride 107
Carbon Dioxide 20 L
BUN 19 H
Creatinine 1.1 H
Glucose 85
Calcium 8.6
Vital Signs:
Vital Signs
Temp Pulse Resp BP Pulse Ox
36.3 C 55 16 125/69 95
04/12/24 03:33 04/12/24 03:33 04/12/24 03:33 04/12/24 03:33 04/12/24 03:33
I&O
04/11/24 04/12/24 04/13/24
06:59 06:59 06:59
Intake Total 590 / 590 700 / 700
Balance 590 / 590 700 / 700
Review of Systems
-
All other systems: Reviewed and negative
Physical Exam
-
General: Well Developed, Well Nourished, No Apparent Distress, Comfortable, Conversant and Appears Chronically Ill; Negative Respiratory Distress
HEENT: Normocephalic, Atraumatic, Nose Appears Normal and Ears Appear Normal; Negative Oxygen
Respiratory: Clear to Auscultation and Non Labored Respirations; Negative Accessory Resp Muscle Use
Cardiac: Regular Rhythm and S1/S2
GI: Soft, Nontender, Nondistended and Normal Bowel Sounds
Skin: Warm and Dry
Neuro: Awake and Alert
Psych: Calm and Intact Judgement/Insight (somewhat)
Data Reviewed
-
Diagnostic Radiology: Report Reviewed by me
Labs: Labs Reviewed by me
--- NOTE | 2024-04-12 10:33 | PTCARENOTE ---
BP this AM was 186/77, 0800 Coreg and Lisinopril administered, BP rechecked at 137/63.
--- NOTE | 2024-04-12 13:48 | W.PN.ID1 ---
Date of Service
Date of Service: April 12, 2024
Today's Communication
- has completed a 3 day course of antibiotics - stopped
follow up with PCP
Assessment / Plan
Mild Covid Infection
- had the most recent booster
- not hypoxemic
- continued improvement, no indication for antivirals at this time
UTI - K pneumoniae
AMS - resolved, due to UTI
- has completed a 3 day course of antibiotics - stopped
follow up with PCP
Chief Complaint
-: UTI and Other (covid)
Subjective / Review of Systems
afebrile
bp stable
mild leukopenia
cr stable
in good spirits, oriented and no complaints
occasional nonproductive cough
Vital Signs / Physical Exam
Vital Signs
Vital Signs
Temp Pulse Resp BP Pulse Ox
97.9 F 68 18 154/70 95
04/12/24 12:04 04/12/24 12:04 04/12/24 12:04 04/12/24 12:04 04/12/24 12:04
Physical Exam
Constitutional: No Acute Distress
Cardiovascular: Regular Rate and S1/S2; Negative Murmur or Rub
Pulmonary: Clear and Symmetric; Negative Wheezes or Rales
Gastrointestinal: Soft, Non Tender, Non Distended and Normal Bowel Sounds
Skin: Warm and Dry; Negative Rash or Jaundice
Neurological: AO x 3
Objective Data
Lab Data
Lab Results
04/12/24 05:39
04/12/24 05:39
Estimated Creat Clear 34 ml/min 04/12/24 05:39
Total Bilirubin 0.9 mg/dl (0.2-1.3) 04/09/24 10:59
AST 26 U/L (14-36) 04/09/24 10:59
ALT 17 U/L (0-35) 04/09/24 10:59
Alkaline Phosphatase 67 U/L (38-126) 04/09/24 10:59
Most recent labs reviewed.
Micro Results:
04/09/24 12:12 Urine Culture - Final
Urine Klebsiella pneumoniae
04/09/24 20:29 MRSA Screen - Final
Nose No Methicillin Resistant Staphylococcus aureus isolated.
04/09/24 17:58 Influenza Types A & B (MAGDA) - Final
Nasal Swab Negative for Influenza A & B, NAAT
Negative results must be combined with clinical observations
and patient history.
Nucleic Acid Amplification test (NAAT)performed on the
[employer] platform.
Care Review
Plan reviewed with: Physician (Dr Barb layne)
--- NOTE | 2024-04-12 16:10 | CM ---
Reviewed the chart notes and spoke with the patient's daughter via telephone. Patient's daughter wants [facility], left for Admissions Liaison. IMM reviewed. CM continues to be available to patient/family and is monitoring medical plan for needs at
discharge.
Plan: Discharge to SNF/rehab once bed secured. No precert required.
[2024-04-12] MEDS: LIPITOR 40 MG PO (18:11)
[2024-04-12] MEDS: ALDACTONE 25 MG PO (18:11)
[2024-04-12] MEDS: MELATONIN 5 MG PO (19:56)
[2024-04-12] MEDS: XALATAN OPHTHALMIC SOLUTION 1 DROP BOTH EYES (19:56)
[2024-04-13 06:00] VITALS: BMI 25.0
[2024-04-13 07:40] VITALS: BP 179/71
[2024-04-13 09:13] LABS: % Basophils 0.3 % (0-2); % Eosinophils 3.3 % (0-6); % Immature Granulocytes 0.3 % (0-0.5); % Lymphocytes 41.1 % (20.5-51.1); % Monocytes 7.4 % (1.7-9.3); % Neutrophils 47.6 % (42.2-75.2); Absolute Eosinophils 0.1 10^3/uL (0-0.7); Absolute Lymphocytes 1.4 10^3/uL (1.2-3.4); Absolute Monocytes 0.3 10^3/uL (0.1-0.6); Absolute Neutrophils 1.6 10^3/uL (1.4-6.5); Hematocrit 35.1 % (37.0-47.0); Hemoglobin 11.9 g/dL (12.0-16.0); Mean Corp Hgb Conc. 33.9 g/dL (33.0-37.0); Mean Corpuscular Hgb 27.9 pg (27.0-31.0); Mean Corpuscular Volume 82.2 fL (81.0-99.0); Mean Platelet Volume 9.2 fL (7.4-10.4); Nucleated Red Blood Cells % 0 %; Platelet Count 172 10^3/uL (130-400); Red Blood Cell Count 4.27 10^6/uL (4.20-5.40); Red Cell Dist. Width 13.7 % (11.5-14.5); White Blood Cell Count 3.4 10^3/uL (4.8-10.8)
--- NOTE | 2024-04-13 09:15 | CM ---
Patient accepted for transfer today to [facility]. CM will confirm with physician and update daughter.
[2024-04-13] MEDS: MUCINEX 1200 MG PO (09:20)
[2024-04-13] MEDS: COREG 12.5 MG PO (09:20)
[2024-04-13] MEDS: FARXIGA 10 MG PO (09:20)
[2024-04-13] MEDS: ELIQUIS 5 MG PO (09:20)
[2024-04-13] MEDS: ZESTRIL 40 MG PO (09:21)
[2024-04-13 09:22] LABS: Blood Urea Nitrogen 13 mg/dl (7-17); Calcium 8.8 mg/dl (8.4-10.2); Carbon Dioxide 23 mmol/L (22-30); Chloride 107 mmol/L (98-107); Estimated Creatinine Clearance 47 ml/min; Glucose 86 mg/dl (70-99); Potassium 3.9 mmol/L (3.5-5.1); Sodium 139 mmol/L (135-145); eGFR > 60.00
[2024-04-13] MEDS: ZINC OXIDE OINTMENT 1 APPLIC TOPICAL (09:26)
--- NOTE | 2024-04-13 10:34 | W.PN.HOSP.TC ---
Addendum entered and electronically signed by Elizabeth Day MD 04/13/24 14:17:
total DC time 38 min
Original Note:
Today's Communication/Plan
-
see A/P
Assessment / Plan
Assessment / Plan
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
January 2024 [place] [facility]ization), HFrEF (sees Dr. Cortez outpatient- per patient's family, patient had EF 35% to 40%), hyperlipidemia, hypertension, urinary incontinence and glaucoma, presented with generalized weakness since the morning
of DOA.
Per patient's family, patient was unable to sit up and ambulate with a walker (at baseline she functions at times independently even without a walker, even though she is supposed to use a walker).
Patient reported urinary frequency but denied any other complaints.
Patient's family said she is having trouble producing words in the past few hours.
A/P:
# Generalized Weakness
# Acute metabolic encephalopathy with slow speech/trouble bringing up words, resolved
# History of Pseudomonas UTI
Concern for UTI (patient reported urinary frequency), Urine culture with Klebsiella, sensitivity reviewed
s/p ceftriaxone/cefepime/Zosyn, completed treatment hence no further Abx needed
PT/OT recc SNF
# COVID infection without hypoxia
COVID positive on admission 04/09, total isolation 10 days
Flu negative. CXR NAD.
daughter kindly declined Paxlovid at this time, which is reasonable
# Recent history hospitalization at [facility] (after being found down on the floor) and rhabdomyolysis
# Intracardiac thrombus in the heart (on Eliquis, diagnosed in January 2024 after being found on echo)
Continue Eliquis
# HFrEF (sees Dr. Cortez outpatient- per family was told EF 35% to 40%)
# Ischemic Cardiomyopathy
# Coronary Artery Disease
Continue home goal-directed medical therapy
Daily weights
I's and O's
# Chronic Kidney Disease stage 3
# Impaired Fasting Glucose
Monitor blood glucose
# Hyperlipidemia
Continue home Atorvastatin
# Hypertension
Continue home Coreg, Lisinopril and increase Aldactone to 50 mg
BMP in 1 week given Aldactone to be increase
# Urinary incontinence
Bladder scans protocol
# Glaucoma
Continue outpatient Latanoprost
DVT Prophylaxis: Eliquis
Code Status: Full Code
Dispo: SNF per PT
DW CM
updated daughter on the phone 04/13
total time spent 51 min
Anticipated Discharge: Today
Subjective/Interval History
-
Date of Service: April 13, 2024
Objective Data
-
Labs:
Laboratory Results
04/13/24
08:48
WBC 3.4 L
Hgb 11.9 L
Hct 35.1 L
Plt Count 172
Sodium 139
Potassium 3.9
Chloride 107
Carbon Dioxide 23
BUN 13
Creatinine 0.8
Glucose 86
Calcium 8.8
Vital Signs:
Vital Signs
Temp Pulse Resp BP Pulse Ox
36.6 C 60 16 179/71 97
04/13/24 07:40 04/13/24 09:21 04/13/24 07:40 04/13/24 09:21 04/13/24 07:40
I&O
04/12/24 04/13/24 04/14/24
06:59 06:59 06:59
Intake Total 700 / 700 760 / 760
Balance 700 / 700 760 / 760
Review of Systems
-
All other systems: Reviewed and negative
Physical Exam
-
General: Well Developed, Well Nourished, No Apparent Distress, Comfortable, Conversant and Appears Chronically Ill; Negative Respiratory Distress
HEENT: Normocephalic, Atraumatic, Nose Appears Normal and Ears Appear Normal; Negative Oxygen
Respiratory: Clear to Auscultation and Non Labored Respirations; Negative Accessory Resp Muscle Use
Cardiac: Regular Rhythm and S1/S2
GI: Soft, Nontender, Nondistended and Normal Bowel Sounds
Skin: Warm and Dry
Neuro: Awake and Alert
Psych: Calm and Intact Judgement/Insight (somewhat)
Data Reviewed
-
Diagnostic Radiology: Report Reviewed by me
Labs: Labs Reviewed by me
--- NOTE | 2024-04-13 11:58 | CM ---
Addendum entered by Shanti Escamilla 04/13/24 13:32:
wheelchair van drivers, uncomfortable with transfer now going to send via ambulance. forms tubed to orth and awaiting time of ambulance.
Original Note:
Patient for transfer to [facility] today. Please call report to [phone]/fax [phone]. Per acute care wheelchair van to transport 12;30-13;00, patient daughter aware, community support worker updated. CM spoke with daughter and all questions addressed and
patient son to call with credit card to ambulance co. CM will continue to follow for discharge planning needs.
Plan; SNF today
[2024-04-13 12:51] VITALS: BP 170/80
[2024-04-13] MEDS: APRESOLINE 10 MG IV (13:25)
--- NOTE | 2024-04-13 14:02 | W.PN.ID1 ---
Date of Service
Date of Service: April 13, 2024
Today's Communication
ID service will no longer actively follow this patient please recall for further questions
follow up with PCP
Assessment / Plan
Mild Covid Infection
- had the most recent booster
- not hypoxemic
- continued improvement, no indication for antivirals at this time
UTI - K pneumoniae
AMS - resolved, due to UTI
- completed a 3 day course of antibiotics - stopped
ID service will no longer actively follow this patient please recall for further questions
follow up with PCP
Chief Complaint
-: UTI and Other (covid)
Subjective / Review of Systems
afebrile
was restarted on her antihypertensives
no events overnight
Vital Signs / Physical Exam
Vital Signs
Vital Signs
Temp Pulse Resp BP Pulse Ox
97.9 F 65 16 170/80 97
04/13/24 12:51 04/13/24 13:25 04/13/24 12:51 04/13/24 13:25 04/13/24 12:51
Physical Exam
Constitutional: No Acute Distress
Cardiovascular: Regular Rate
Pulmonary: Symmetric and Non Labored
Gastrointestinal: Non Distended
Skin: Dry; Negative Rash
Neurological: Awake
Objective Data
Lab Data
Lab Results
04/13/24 08:48
04/13/24 08:48
Estimated Creat Clear 47 ml/min 04/13/24 08:48
Total Bilirubin 0.9 mg/dl (0.2-1.3) 04/09/24 10:59
AST 26 U/L (14-36) 04/09/24 10:59
ALT 17 U/L (0-35) 04/09/24 10:59
Alkaline Phosphatase 67 U/L (38-126) 04/09/24 10:59
Most recent labs reviewed.
Micro Results:
04/09/24 12:12 Urine Culture - Final
Urine Klebsiella pneumoniae
04/09/24 20:29 MRSA Screen - Final
Nose No Methicillin Resistant Staphylococcus aureus isolated.
04/09/24 17:58 Influenza Types A & B (MAGDA) - Final
Nasal Swab Negative for Influenza A & B, NAAT
Negative results must be combined with clinical observations
and patient history.
Nucleic Acid Amplification test (NAAT)performed on the
[employer] platform.
--- NOTE | 2024-04-13 14:02 | W.DCSUMMARY ---
Discharge Summary
Discharge Data
Date of Admission: 04/10/24
Date of Discharge: 04/13/24
-
Pending Results: No
Hospital Course
Principal Diagnosis:
Generalized Weakness with Acute metabolic encephalopathy likely due to urinary tract infection and COVID infection.
COVID infection without hypoxia
Chronic Diagnoses:�
Suspect underlying cognitive impairment/Dementia
Recent history hospitalization at [facility] (after being found down on the floor) with rhabdomyolysis
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
Chronic heart failure with reduced ejection fraction
Ischemic Cardiomyopathy
Coronary Artery Disease
Chronic Kidney Disease stage 3
Hyperlipidemia
Hypertension
Urinary incontinence
Glaucoma
Consultations:�
Infectious disease
Procedures:�
None
Clinical course:�
This is a 84-year-old female, with past medical history as stated above, who presented with weakness. She apparently was too weak to ambulate. She uses a walker at baseline.
Problem 1:
Generalized Weakness with Acute metabolic encephalopathy likely due to urinary tract infection and COVID infection.
Her urine culture was positive for Klebsiella.
She received ceftriaxone, then cefepime, then Zosyn while in the hospital (due to history of Pseudomonas UTI). She has completed antibiotic course for UTI while in the hospital.
She was discharged to SNF per PT OT eval/recommendation.
Problem 2:
COVID infection without hypoxia
COVID test was positive on admission 04/09, hence she should continue total isolation for 10 days until 04/19/2024.
Her Flu was negative and CXR was unrevealing.
She did not receive Paxlovid per family request.
Problem 3:
Essential hypertension.
She can continue with her prior to admission Coreg 12.5 mg twice daily, lisinopril 40 mg daily, and her prior to admission Aldactone was increased from 25 to 50 to better control her blood pressure.
She can check outpatient BMP after COVID isolation given Aldactone dose was increased.
As for the rest of her medical problems, they were stable during her hospital stay.
Discharge Plan
-
Patient Disposition: Assisted/SNF
Discharge Diagnosis/Procedures: Generalized weakness with confusion due to urinary tract infection (completed treatment) and COVID infection;
suspect underlying cognitive impairment (dementia) with sundowning;
hypertension
Condition: Fair
Diet: As tolerated
Activity: As tolerated
Driving Restrictions: Not until seen by your Dr
Blood Work: BMP in 1-2 weeks given Aldactone dose increased
Activity Restrictions/Additional Instructions:
Continue COVID isolation until 04/19 (total 10 days from day of positive test)
Referrals:
Sean Ta MD [Family Provider] - in less than 1 week
Additional Discharge Medication Instructions: increase Aldactone to 50 mg to better control BP
Prescriptions:
New
spironolactone 25 mg Tablet
50 mg PO QPM Qty: 30 0RF
Continued
latanoprost 0.005 % Drops
1 drp BOTH EYES HS
atorvastatin 40 mg Tablet
40 mg PO QPM
acetaminophen [Tylenol] 325 mg Tablet
325 mg PO Q6HPRN PRN (Reason: mild pain)
carvedilol [Coreg] 12.5 mg Tablet
12.5 mg PO BID
zinc oxide 20 % Ointment
1 applic TOPICAL TIDPRN PRN (Reason: sacrum/buttock)
zinc oxide 20 % Ointment
1 applic TOPICAL BID
lisinopril 40 mg Tablet
40 mg PO DAILY
melatonin 5 mg Tablet
5 mg PO HS
Eliquis 5 mg Tablet
5 mg PO BID
dapagliflozin propanediol [Farxiga] 10 mg Tablet
10 mg PO DAILY
Discontinued
spironolactone 25 mg Tablet
25 mg PO QPM
Discharge Orders:
Discharge Patient (As Directed); Ordered 04/13/24
Ordered By: Elizabeth Day
Discharge Date and Time
Print Language: BRITISH
[2024-04-13 15:45] VITALS: BP 133/62
== END 2024-04-13 17:00 | DRG 177 ==
LOC: 2 NORTH 09:37
PROVIDERS: ADMITTING PHYSICIAN Hospitalist; ATTENDING PHYSICIAN Internal Medicine; CONSULT PHYSICIAN Student in an Organized Health Care Education/Training Program; EMERGENCY PHYSICIAN Emergency Medicine; FAMILY PHYSICIAN Family Medicine; OTHER PHYSICIAN Psychiatry & Neurology Neurology
DX: U07.1 COVID-19 (principal); G93.41 Metabolic encephalopathy; N39.0 Urinary tract infection, site not specified; I50.22 Chronic systolic (congestive) heart failure; I13.0 Hypertensive heart and chronic kidney disease with heart failure and stage 1 through stage 4 chronic kidney disease, or unspecified chronic kidney disease; M62.82 Rhabdomyolysis; I5A Non-ischemic myocardial injury (non-traumatic); Z11.52 Encounter for screening for COVID-19; Z79.01 Long term (current) use of anticoagulants; I25.5 Ischemic cardiomyopathy; N18.30 Chronic kidney disease, stage 3 unspecified; H40.9 Unspecified glaucoma; I25.10 Atherosclerotic heart disease of native coronary artery without angina pectoris
CPT/HCPCS: 51701; 70450; 71046; 80048; 80053; 81003; 81015; 83735; 83880; 84484; 85025; 87070; 87077; 87086; 87186; 87502; 87811; 93005; 96361; 96374; 97116; 97163; 97167; 97530; 97535; 99285

== ENCOUNTER → 2024-04-17 10:13 | Outpatient (REF) | payer MEDICARE, OTHER, SELFPAY ==
[2024-04-17 11:39] LABS: % Basophils 0.5 % (0-2); % Eosinophils 2.8 % (0-6); % Immature Granulocytes 0.6 % (0-0.5); % Lymphocytes 25.3 % (20.5-51.1); % Monocytes 7.5 % (1.7-9.3); % Neutrophils 63.3 % (42.2-75.2); Absolute Eosinophils 0.2 10^3/uL (0-0.7); Absolute Lymphocytes 1.6 10^3/uL (1.2-3.4); Absolute Monocytes 0.5 10^3/uL (0.1-0.6); Hematocrit 35.8 % (37.0-47.0); Hemoglobin 12.1 g/dL (12.0-16.0); Mean Corp Hgb Conc. 33.8 g/dL (33.0-37.0); Mean Corpuscular Hgb 28.7 pg (27.0-31.0); Mean Corpuscular Volume 84.8 fL (81.0-99.0); Nucleated Red Blood Cells % 0 %; Platelet Count 190 10^3/uL (130-400); Red Blood Cell Count 4.22 10^6/uL (4.20-5.40); Red Cell Dist. Width 13.5 % (11.5-14.5); White Blood Cell Count 6.4 10^3/uL (4.8-10.8)
[2024-04-17 12:24] LABS: Blood Urea Nitrogen 15 mg/dl (7-17); Calcium 8.8 mg/dl (8.4-10.2); Carbon Dioxide 25 mmol/L (22-30); Chloride 105 mmol/L (98-107); Glucose 88 mg/dl (70-99); Potassium 4.3 mmol/L (3.5-5.1); Sodium 139 mmol/L (135-145); eGFR 56.25
== END ==
LOC: OLABP 10:13
PROVIDERS: ATTENDING PHYSICIAN Family Medicine
DX: U07.1 COVID-19 (principal); N39.0 Urinary tract infection, site not specified; I50.22 Chronic systolic (congestive) heart failure; N18.30 Chronic kidney disease, stage 3 unspecified; I10 Essential (primary) hypertension
CPT/HCPCS: 36415; 80048; 85025

== ENCOUNTER → 2024-06-19 11:42 | Outpatient (REF) | payer MEDICARE, OTHER, SELFPAY ==
[2024-06-19 12:36] LABS: ALT (SGPT) 12 U/L (0-35); AST (SGOT) 19 U/L (14-36); Alkaline Phosphatase 63 U/L (38-126); Blood Urea Nitrogen 12 mg/dl (7-17); Calcium 9.5 mg/dl (8.4-10.2); Carbon Dioxide 25 mmol/L (22-30); Chloride 105 mmol/L (98-107); Glucose 87 mg/dl (70-99); HDL Cholesterol 61 mg/dl; LDL Cholesterol, Calculated 91 mg/dl; Magnesium 1.7 mg/dl (1.6-2.3); Potassium 3.9 mmol/L (3.5-5.1); Total Bilirubin 0.6 mg/dl (0.2-1.3); Total Cholesterol 173 mg/dl (50-199); Triglyceride 108 mg/dl (10-149); Very Low Density Lipoprotein 21 mg/dl (0-30); eGFR 50.17
[2024-06-19 12:46] LABS: Sodium 139 mmol/L (135-145)
[2024-06-19 14:39] LABS: Glycohemoglobin (HgbA1c) 5.1 % (4.0-5.6)
== END ==
LOC: RCS 11:42
PROVIDERS: ATTENDING PHYSICIAN Internal Medicine Cardiovascular Disease; FAMILY PHYSICIAN Family Medicine
DX: I50.20 Unspecified systolic (congestive) heart failure (principal); I51.3 Intracardiac thrombosis, not elsewhere classified; I25.5 Ischemic cardiomyopathy; R19.7 Diarrhea, unspecified; R81 Glycosuria; N18.31 Chronic kidney disease, stage 3a; E78.2 Mixed hyperlipidemia; N30.90 Cystitis, unspecified without hematuria; R73.03 Prediabetes
CPT/HCPCS: 36415; 80053; 80061; 83036; 83735; 93307; Q9957

== ENCOUNTER → 2024-10-06 10:23 | Outpatient (REF) | payer MEDICARE, OTHER, SELFPAY ==
[2024-10-06 12:51] LABS: ALT (SGPT) 19 U/L (0-35); AST (SGOT) 20 U/L (14-36); Albumin 4.3 g/dl (3.5-5.0); Alkaline Phosphatase 77 U/L (38-126); Blood Urea Nitrogen 15 mg/dl (7-17); Calcium 9.7 mg/dl (8.4-10.2); Carbon Dioxide 27 mmol/L (22-30); Chloride 107 mmol/L (98-107); Glucose 92 mg/dl (70-99); HDL Cholesterol 60 mg/dl; LDL Cholesterol, Calculated 94 mg/dl; Sodium 143 mmol/L (135-145); Total Bilirubin 0.6 mg/dl (0.2-1.3); Total Cholesterol 173 mg/dl (50-199); Total Protein 6.2 g/dl (6.3-8.2); Triglyceride 99 mg/dl (10-149); Very Low Density Lipoprotein 19 mg/dl (0-30); eGFR 56.25
== END ==
LOC: HWLAB 10:23
PROVIDERS: ATTENDING PHYSICIAN Family Medicine; REFERRING PHYSICIAN Internal Medicine Cardiovascular Disease
DX: N18.31 Chronic kidney disease, stage 3a (principal); E78.2 Mixed hyperlipidemia
CPT/HCPCS: 36415; 80053; 80061

== ENCOUNTER → 2024-12-28 10:20 | Outpatient (REF) | payer MEDICARE, OTHER, SELFPAY | LOC: HWRCS 10:20 | PROVIDERS: ATTENDING PHYSICIAN Internal Medicine Cardiovascular Disease; FAMILY PHYSICIAN Family Medicine | DX: I50.20 Unspecified systolic (congestive) heart failure (principal); I31.39 Other pericardial effusion (noninflammatory) | CPT/HCPCS: 93308 ==

== ENCOUNTER 2025-01-31 16:23 | Inpatient (IN) | payer MEDICARE, OTHER, SELFPAY ==
[2025-01-31 09:15] VITALS: BP 127/75
--- NOTE | 2025-01-31 11:12 | ED.MUSCINJ ---
HPI-Injury
General
Chief Complaint: Fall
Source: patient
Exam Limitations: none
Time Seen by Provider: 01/31/25 11:00
History of Present Illness-Injury
Initial Injury comments:
84-year-old female presents from the [facility] after staff found her on the floor underneath the bed. The patient was brought here by EMS. The son and daughter accompany her. The patient has no complaints of pain other than the fact that she is
just cold. She is not sure why she fell out of bed. Daughter does note a 3 to 5-day history over the past 3 to 5 days of diarrhea. She is also prone to urinary tract infections and this is how she presents with these issues.
Past History
Past History
ED Past Medical History: CHF, HTN, Hypercholesterolemia and Other (Glaucoma, intracardiac thrombus, gait dysfunction, urinary incontinence)
ED Past Surgical History: Orthopedic
Social History
Tobacco: Non-smoker
Alcohol: Occasional
Drug: None
Personal:
Living: with family
Employment: Retired
Family History
Family History: Other (Reviewed and noncontributory)
Phy Exam
Physical Exam
Physical Exam:
General: Well-appearing female no acute respiratory distress
HEENT: Normocephalic contusion noted to the right forehead pupils equal round reactive to light mucosa moist neck is supple
Heart: Regular rate and rhythm
Lungs: Clear no wheeze
Abdomen is soft nontender nondistended musculoskeletal exam: Spine is nontender good range of motion all extremities without deformity
Neurologic exam: Alert oriented to person and place no facial asymmetry
Injury Course
Orders/Labs/Results
Orders:
Orders
01/31/25 09:22
EKG [Electrocardiogram (*1)] Urgent
Reason for Study: Other
Other Reason for Exam: found on floor
EKG- Treatment ONCE
01/31/25 11:11
CT Head W/o Iv Contrast Urgent
Comment:
Reason For Exam: fall
01/31/25 12:08
CPK [Creatine Phosphokinase] Urgent
Comprehensive Metabolic Panel Urgent
01/31/25 12:50
Urinalysis Reflex To Culture Urgent
Date Specimen was Collected: 01/31/25
Time Specimen was Collected: 12:48
Urine Microscopic Reflex Cult Urgent
Urine Culture Urgent
KATIE Source: U
Specimen Description:
Date Specimen was Collected: 01/31/25
Time Specimen was Collected: 12:48
01/31/25 13:03
0.9% Sodium Chloride 1000 ml [Nss] 1,000 ml IV BOLUS
01/31/25 13:28
Complete Blood Count/With Diff Urgent
01/31/25 14:10
0.9% Sodium Chloride 500 ml [Nss] 500 ml IV BOLUS
01/31/25 14:30
Dextrose 5%/Water 1000 ml [D5w] 1,000 ml Sodium Bicarbonate 150 meq IV 100 mls/hr
01/31/25 14:42
CefTRIAXone [Rocephin] 1,000 mg IV NOW STA
Abnormal Lab Results
01/31/25 01/31/25 01/31/25
12:08 12:50 13:28
WBC 14.2 H 10^3/uL
(4.8-10.8)
Hct 36.9 L %
(37.0-47.0)
Abs Immat Gran (auto) 0.1 H 10^3/uL
(0-0.05)
Absolute Neuts (auto) 11.2 H 10^3/uL
(1.4-6.5)
Absolute Monos (auto) 0.8 H 10^3/uL
(0.1-0.6)
Neutrophils % 78.9 H %
(42.2-75.2)
Lymphocytes % 14.4 L %
(20.5-51.1)
Potassium 5.3 H mmol/L
(3.5-5.1)
Chloride 112 H mmol/L
(98-107)
Carbon Dioxide 7 L* mmol/L
(22-30)
BUN 76 H mg/dl
(7-17)
Creatinine 2.2 H mg/dL
(0.6-1.0)
Calcium 10.5 H mg/dl
(8.4-10.2)
AST 45 H U/L
(14-36)
Creatine Kinase 1248 H U/L
(30-135)
Urine Ketones 1+ A
(Negative)
Ur Occult Blood Reflex 3+ A
(Negative)
Leukocyte Esterase Rfl 1+ A
(Negative)
Urine Bacteria (Reflex) Few A
(Negative)
Urine Glucose 3+ A
(Negative)
Urine Albumin (Reflex) 1+ A
(Neg - Trace)
01/31/25 13:28
01/31/25 12:08
MDM/Problems Addressed
Differential Diagnosis Includes:
Generalized weakness with fall out of bed. Questionable head strike. CT of the head will be ordered to evaluate for fracture or intracranial hemorrhage. There is a recent history of diarrhea. Question dehydration versus electrolyte abnormality
versus UTI
Urinalysis pending blood work pending.
*Pulse Oximetry
SaO2: 98
Oxygen Mode of Delivery: Room air
Patient hypoxic: no
*Critical Care Note
Total Time (30-74mins, 75-104mins- exclusive of procedures): Not Applicable
Update Note
Update Note:
Patient with acute kidney injury with a creatinine of 2.2 metabolic acidosis with a bicarb of 7 and CPK of over 1200. I suspect a lot of this is from dehydration and volume loss. There was an unknown downtime on the floor overnight. Initially
normal saline was ordered I also ordered D5W with bicarb. Questionable UTI and UA Rocephin ordered. Recent urine culture within the past year demonstrates Klebsiella pansensitive. Discussed with emergency room attending. Admit to hospital
ED Attending Note
-
Portions of this chart may have been created with voice recognition software.� Occasional wrong word or��sound alike� substitutions may have occurred due to the inherent limitations of voice recognition software.
Discharge Plan
Departure
Patient Disposition: Admit
Date of Disposition: 01/31/25
Time of Disposition: 15:00
Presentation/result/management discussed w/ accepting MD/DO: Hospitalist
Discharge Problem:
BOBBY (acute kidney injury), Metabolic acidosis
Prescriptions:
No Action
latanoprost 0.005 % Drops
1 drp BOTH EYES HS
atorvastatin 40 mg Tablet
40 mg PO QPM
carvedilol [Coreg] 12.5 mg Tablet
12.5 mg PO BID
zinc oxide 20 % Ointment
1 applic TOPICAL BID
lisinopril 40 mg Tablet
40 mg PO DAILY
melatonin 5 mg Tablet
5 mg PO HS
dapagliflozin propanediol [Farxiga] 10 mg Tablet
10 mg PO DAILY
spironolactone 25 mg Tablet
50 mg PO QPM Qty: 30 0RF
fluorouracil 5 % cream
1 applic TOPICAL BID
amlodipine 5 mg Tablet
5 mg PO HS
aspirin 81 mg Tablet,Chewable
81 mg PO DAILY
Align (B.infantis) 10.5 mg (10 million cell) Tablet,Chewable
10.5 mg PO BID
Referrals:
Sean Ta MD [Family Provider, Family Practice]
Interventions
Interventions:
*Risk Screen - Suicide Last Done: 01/31/25 09:15
*General Assessment Last Done: 01/31/25 11:27
*Neglect/Abuse Screening Last Done: 01/31/25 09:22
*ED- Fall Risk Assessment Last Done: 01/31/25 09:15
*ED COVID-19 Vaccine History Last Done: 01/31/25 11:27
ED-Musculoskeletal Assessment Last Done: 01/31/25 12:31
ED- Neurological Assessment Last Done: 01/31/25 12:31
ED-Skin Assessment Last Done: 01/31/25 12:31
Discharge Date and Time
Print Language: SAMMARINESE
[2025-01-31 11:28] VITALS: BMI 23.8
[2025-01-31 12:55] VITALS: BP 145/52
[2025-01-31 13:00] VITALS: BP 109/41
[2025-01-31 13:00] LABS: ALT (SGPT) 18 U/L (0-35); AST (SGOT) 45 U/L (14-36); Albumin 4.4 g/dl (3.5-5.0); Alkaline Phosphatase 65 U/L (38-126); Blood Urea Nitrogen 76 mg/dl (7-17); Calcium 10.5 mg/dl (8.4-10.2); Carbon Dioxide 7 mmol/L (22-30); Chloride 112 mmol/L (98-107); Estimated Creatinine Clearance 16 ml/min; Glucose 78 mg/dl (70-99); Potassium 5.3 mmol/L (3.5-5.1); Sodium 135 mmol/L (135-145); Total Protein 6.7 g/dl (6.3-8.2); eGFR 21.84
[2025-01-31 13:04] LABS: Urine Character Clear (Clear)
[2025-01-31 13:30] LABS: Urine Red Blood Cell 0-2 /HPF (0-2); Urine Squamous Cell 0-2 /LPF (Few)
[2025-01-31 13:34] LABS: Hematocrit 36.9 % (37.0-47.0); Hemoglobin 12.6 g/dL (12.0-16.0); Mean Corp Hgb Conc. 34.1 g/dL (33.0-37.0); Mean Corpuscular Volume 83.9 fL (81.0-99.0); Nucleated Red Blood Cells % 0 %; Platelet Count 231 10^3/uL (130-400); Red Cell Dist. Width 12.8 % (11.5-14.5)
[2025-01-31] MEDS: NSS 1000 IV (13:51)
[2025-01-31 13:57] LABS: Glucose - Point of Care 70 mg/dl (70-99)
[2025-01-31] MEDS: ROCEPHIN 1000 MG IV (15:03)
--- NOTE | 2025-01-31 15:05 | HPS.HSE ---
Family Physician
-
Family Physician: Sean Ta
Chief Complaint
-
fall
History of Present Illness
Patient is a 84-year-old female with past medical history significant for hypertension, hyperlipidemia, HFrEF, paroxysmal supraventricular tachycardia, chronic kidney disease IIIa and ASCVD who presented to [facility] ED for evaluation after being found
on floor. Patient daughter and son at bedside who assisted with HPI. Patient was on phone with daughter last evening around 1900 and reported she needed to get off phone to use restroom, this is the last assumed time of patient having been ok. She
was then found by facility staff early this morning around 0800 on floor under her bed, covered in feces. Daughter states patient has had diarrhea for 3-4 days, patient describing as all episodes as watery diarrhea. No known fevers, chills, cough,
shortness of breath, chest pain, nausea, vomiting or urinary symptoms.
Medical History
Past Medical History
Past Medical History: Reports Other
Additional Past Medical History:
hypertension
hyperlipidemia
HFrEF
paroxysmal supraventricular tachycardia
chronic kidney disease IIIa
ASCVD
squamous cell carcinoma left dorsal hand
Past Surgical History: Reports Other
Additional Past Surgical History:
Left wrist external fixator 03.17.2008 CBB
left hand surgery 06/29/2023
Social History
Tobacco: Non-smoker
Alcohol: None
Drug: None
Living: Assisted Living ([facility])
Family History
Family History: Not pertinent
Allergies / Home Medications
Allergies reflects when Allergies were last updated in [employer].
Home Medications with original date entered in [employer]
Allergy/Medication List:
Allergies
Allergy/AdvReac Type Severity Reaction Status Date / Time
No Known Drug Allergies Allergy NA Verified 01/31/25 09:21
Home Medications
atorvastatin 40 mg tablet 40 mg PO QPM High Cholesterol 04/09/24
carvedilol 12.5 mg tablet (Coreg) 12.5 mg PO BID Blood Pressure 04/09/24
dapagliflozin propanediol 10 mg tablet (Farxiga) 10 mg PO DAILY Diabetes 04/09/24
latanoprost 0.005 % eye drops 1 drp BOTH EYES HS Eye Condition 04/09/24
lisinopril 40 mg tablet 40 mg PO DAILY Blood Pressure 04/09/24
melatonin 5 mg tablet 5 mg PO HS Sleep 04/09/24
zinc oxide 20 % topical ointment 1 applic topical BID sacrum/buttock 04/09/24
spironolactone 25 mg tablet 50 mg (2 x 25 mg) PO QPM #30 tabs 04/13/24
Bifidobacterium infantis 10.5 mg (10 million cell) chewable tablet (Align (B.infantis)) 10.5 mg PO BID 01/31/25
amlodipine 5 mg tablet 5 mg PO HS 01/31/25
aspirin 81 mg chewable tablet 81 mg PO DAILY 01/31/25
fluorouracil 5 % topical cream 1 applic topical BID 01/31/25
Review of Systems
-
History Source: Patient
Constitutional: Denies Fever or Chills
EENT: Denies Sore Throat
Respiratory: Denies Cough or Trouble Breathing
Cardiac: Denies Chest Pain, Diaphoresis, Palpitations or Syncope
Abdomen/GI: Reports Diarrhea; Denies Abdominal Pain, Nausea, Vomiting, Constipated, Bloody Stools or Black Stools
: Reports Incontinence; Denies Dysuria, Frequency, Flank Pain, Difficulty Voiding or Urgency
Musculoskeletal: Denies Edema
Skin: Denies Rash
Neurological: Reports Weakness; Denies Dizzy or Numbness
Psych: Reports Calm
Physical Exam
Vital Signs
Vital Signs
Temp Pulse Resp BP Pulse Ox
97.7 F 63 17 109/41 98
01/31/25 09:15 01/31/25 13:45 01/31/25 13:45 01/31/25 13:00 01/31/25 11:15
Physical Exam
General: No Apparent Distress, Comfortable, Conversant and Appears Chronically Ill
HEENT: NormoCephalic, Moist mucous membranes and Atraumatic
Respiratory: Clear; No Non Labored Respirations
Cardiac: S1/S2 and Regular Rhythm
Breast: Deferred by me
GI: Soft, Non Tender, Non Distended and Normal Bowel Sounds; No Organomegaly
Rectal: Deferred by Provider
Genito-urinary: Deferred by me
Musculoskeletal: No Clubbing, No Cyanosis and No Edema
Skin: Warm and Other (squamous cell carcinoma left dorsal hand); No IV/Catheter Site
Neuro: Awake, Alert and Nonfocal/grossly intact
Hematologic/Lymphatic: No Lymphadenopathy
Psych: Calm and Intact Judgment/Insight
Laboratory Results
-
01/31/25 13:28
01/31/25 12:08
Laboratory Results
Total Bilirubin 0.9 mg/dl (0.2-1.3) 01/31/25 12:08
AST 45 U/L (14-36) H 01/31/25 12:08
ALT 18 U/L (0-35) 01/31/25 12:08
Alkaline Phosphatase 65 U/L (38-126) 01/31/25 12:08
Data Reviewed
-
CT Scan: Report Reviewed by me (Head: No acute intracranial abnormalities. Findings again seen compatible with diffuse cortical atrophy with nonspecific white matter changes as described above.)
Medical Tests (Nuc Med, Echo, EKG etc): Report Reviewed by me (EKG: NORMAL SINUS RHYTHM LEFT AXIS DEVIATION LEFT BUNDLE BRANCH BLOCK)
Lab Data: Labs Reviewed by me (WBC 14.2, neut 78.9, K+ 5.3, Chl 112, HCO3 7, BUN 76, creat 2.2, est CrCl 16, eGFR 21.84, Ca+ 10.5, CPK 1248)
Impression/Plan
-
IMPRESSION/PLAN:
#acute kidney injury
#metabolic acidosis
#chronic kidney disease IIIa
K+ 5.3, Chl 112, HCO3 7, BUN 76, creat 2.2, est CrCl 16, eGFR 21.84, Ca+ 10.5
- Admit to Telemetry
- Consult Nephrology
- IVF Bicarb gtt
- monitor BMP
#rhabdomyolysis
CPK 1248
- IVF Bicarb gtt
#s/p unwitnessed fall likely 2/2 generalized weakness vs. infectious process
WBC 14.2, neut 78.9
UA: not indicative of UTI
Urine Cx: pending
EKG: NORMAL SINUS RHYTHM
LEFT AXIS DEVIATION
LEFT BUNDLE BRANCH BLOCK
Head CT: No acute intracranial abnormalities.
Findings again seen compatible with diffuse cortical atrophy with nonspecific white matter changes as described above.
- supportive care
- Consult PT
#hypertension
- continue amlodipine
- hold lisinopril in setting BOBBY
#hyperlipidemia
- continue atorvastatin
#HFrEF
- daily weights
- I & Os
- hold dapagliflozin
- hold spironolactone
#paroxysmal supraventricular tachycardia
- continue carvedilol
#ASCVD
- continue aspirin
Code status: full code
DVT prophylaxis: heparin sq
--- NOTE | 2025-01-31 15:43 | W.PN.UPDATE ---
Update Note
Progress Note Update
This note serves as an addendum to the H&P by barn manager Will Castillo
HPI
84M from [facility] HX UTI, HX fall w prolonged lying on the floor complicated with rhabdomyolysis, intracardiac thrombus, on Eliquis, HFrEF wiht LVEF 35% to 40%, HLD, HTN seen at ER
- Found on floor under the bed this AM - unknown duration fall
- Family states she is slightly confused.
- has had diarrhea for the past several days.
PHX
Relevant VS
Temp Pulse Resp BP Pulse Ox
97.7 F 63 17 109/41 98
01/31/25 09:15 01/31/25 13:45 01/31/25 13:45 01/31/25 13:00 01/31/25 11:15
PE
Gen: not toxic , alert , pleasantly confused
HEENT: pale complexion
Neck: supple
Lungs: CTA
Cor: RRR S1 S2
Abdomen:� soft benign
ASSOCIATE PROFESSOR OF KINESIOLOGY: Alert , follows command correctly
MS: symmetric movements and strength
Psych: interactive and appropriate
Relevant Data
10/06/24 01/31/25 01/31/25
10:33 12:08 13:28
WBC 14.2 H
Hgb 12.6
Sodium 143 135
Potassium 4.0 5.3 H
Chloride 107 112 H
Carbon Dioxide 27 7 L*
BUN 15 76 H
Creatinine 1.0 2.2 H
eGFR 56.25 21.84
Calcium 10.5 H
AST 45 H
Creatine Kinase 1248 H
Last hospitalist admission: Date of Admission: 04/10/24 - Date of Discharge: 04/13/24
Principal Diagnosis:
Generalized Weakness with Acute metabolic encephalopathy likely due to urinary tract infection and COVID infection.
COVID infection without hypoxia
EKG:
NORMAL SINUS RHYTHM
LEFT AXIS DEVIATION
LEFT BUNDLE BRANCH BLOCK
Head CT:
No acute intracranial abnormalities.
Findings again seen compatible with diffuse cortical atrophy with nonspecific white matter changes as described above.
CXR pending
Last hospitalist admission: Date of Admission: 04/10/24 - Date of Discharge: 04/13/24
Principal Diagnosis:
Generalized Weakness with Acute metabolic encephalopathy likely due to urinary tract infection and COVID infection.
COVID infection without hypoxia
ASSESSMENT & PLAN
Unwitnessed fall likely 2/2 generalized weakness vs. infectious process
HX Pseudomonas UTI
WBC 14.2, neut 78.9
UA: not indicative of UTI
Urine Cx: pending
- CXR pending
- ER gave IV CFTX
- Await UCX -Hold off further Rocephin
- IV Rocephin
- supportive care
BOBBY with hyperkalemia
NAG MA @15 ( albumin corrected)
Severe hypocarbia
HX CKD3
- Hold Lisinopril
- Hold spironolactone
- agree with HCO3 gtt
- Trend BMP
- Renal consulted
Rhabdomyolysis with CPK 1248
Associated with Falls and prolonged duration on the floor
- Trend CPKs
- IVF Bicarb gtt
- IVF
Generalized Weakness
Multifactorial encephalopathy
- NEG UA
- correct Acid base disorder
- IVF
- PT/OT
Essential HTN
- continue amlodipine
- hold lisinopril due to BOBBY
HLD
- continue atorvastatin
HX Chr HFrEF
- on [employer]LECT[employer] PRO[employer] dapagliflozin
- hold spironolactone due to BOBBY
- daily weights
- I & Os
Prx SVT HX
- on SENIOR ELECTRICAL PROJECT MANAGER carvedilol
HX ASCVD
- on ASA
DVT Px: SQH
Full code
IP TLM
--- NOTE | 2025-01-31 16:14 | W.CON.NEPH ---
Consultation
-
Date/Time Consultation Requested: 01/31/2025 4:00 PM
Date/Time Consultation Performed: 01/31/2025 4:00
Requesting Provider: Dr. Chappell
Performing Provider: Dr. Loo
Reason for Consultation: Acute kidney injury/metabolic acidosis
Medical History
-
Chief Complaint: Acute kidney injury/metabolic acidosis
History of Present Illness:
The patient is an 84-year-old female with a past medical history of hypertension maintained on the combination of amlodipine carvedilol lisinopril and Aldactone. The patient has a prior history of congestive heart failure but is only maintained on
Farxiga and Aldactone for this condition. She has a history of dyslipidemia and is maintained on statin therapy. She presents from the [facility] after staff found her on the floor underneath the bed. The patient was brought here by EMS. The son and
daughter accompany her. The patient has no complaints of pain other than the fact that she is just cold. She is not sure why she fell out of bed. Daughter does note a 3 to 5-day history over the past 3 to 5 days of diarrhea. She is also prone to
urinary tract infections and this is how she presents with these issues. On presentation to the hospital she was in acute renal failure with her creatinine up to 2.2, for baseline of around 1.1, with associated gap 10 predominantly nongap metabolic
acidosis as noted by a serum bicarbonate level of 7. Nephrology was consulted for her acute renal failure. Of note CPK levels were 1248 on presentation
Past Medical History
HTN
CHF, HTN, Hypercholesterolemia and Other (Glaucoma, intracardiac thrombus, gait dysfunction, urinary incontinence)
Social History
Tobacco: Non-Smoker
Alcohol: Occasional
Drug: None
Living: Assisted Living
Allergies / Home Medications
Allergy/AdvReac Type Severity Reaction Status Date / Time
No Known Drug Allergies Allergy NA Verified 01/31/25 09:21
�Medication �Instructions �Recorded �Confirmed �Type
atorvastatin 40 mg tablet 40 mg PO QPM High Cholesterol 04/09/24 01/31/25 History
carvedilol 12.5 mg tablet (Coreg) 12.5 mg PO BID Blood Pressure 04/09/24 01/31/25 History
dapagliflozin propanediol 10 mg 10 mg PO DAILY Diabetes 04/09/24 01/31/25 History
tablet (Farxiga)
latanoprost 0.005 % eye drops 1 drp BOTH EYES HS Eye Condition 04/09/24 01/31/25 History
lisinopril 40 mg tablet 40 mg PO DAILY Blood Pressure 04/09/24 01/31/25 History
melatonin 5 mg tablet 5 mg PO HS Sleep 04/09/24 01/31/25 History
zinc oxide 20 % topical ointment 1 applic topical BID sacrum/buttock 04/09/24 01/31/25 History
spironolactone 25 mg tablet 50 mg (2 x 25 mg) PO QPM #30 tabs 04/13/24 01/31/25 Rx
Bifidobacterium infantis 10.5 mg 10.5 mg PO BID 01/31/25 01/31/25 History
(10 million cell) chewable tablet
(Align (B.infantis))
amlodipine 5 mg tablet 5 mg PO HS 01/31/25 01/31/25 History
aspirin 81 mg chewable tablet 81 mg PO DAILY 01/31/25 01/31/25 History
fluorouracil 5 % topical cream 1 applic topical BID 01/31/25 01/31/25 History
Review of Systems
-
All other systems: Negative unless noted
Abdomen/GI: Diarrhea
Physical Exam
Vital Signs
Vital Signs
Temp Pulse Resp BP Pulse Ox
97.7 F 63 17 109/41 98
01/31/25 09:15 01/31/25 13:45 01/31/25 13:45 01/31/25 13:00 01/31/25 11:15
Lab Results
WBC 14.2 10^3/uL (4.8-10.8) H 01/31/25 13:28
01/31/25 13:28
01/31/25 12:08
RBC 4.40 10^6/uL (4.20-5.40) 01/31/25 13:28
Hgb 12.6 g/dL (12.0-16.0) 01/31/25 13:28
Hct 36.9 % (37.0-47.0) L 01/31/25 13:28
Plt Count 231 10^3/uL (130-400) 01/31/25 13:28
Sodium 135 mmol/L (135-145) 01/31/25 12:08
Potassium 5.3 mmol/L (3.5-5.1) H 01/31/25 12:08
Chloride 112 mmol/L (98-107) H 01/31/25 12:08
Carbon Dioxide 7 mmol/L (22-30) L* 01/31/25 12:08
BUN 76 mg/dl (7-17) H 01/31/25 12:08
Creatinine 2.2 mg/dL (0.6-1.0) H 01/31/25 12:08
eGFR 21.84 01/31/25 12:08
Glucose 78 mg/dl (70-99) 01/31/25 12:08
Calcium 10.5 mg/dl (8.4-10.2) H 01/31/25 12:08
Albumin 4.4 g/dl (3.5-5.0) 01/31/25 12:08
Physical Exam
General: AOx3, Nontoxic , NAD
HEENT: PERRL, EOMI, Anicteric, Conjunctivae Clear, Ear/Nose Intact, Hearing Normal, Oropharynx Clear/Moist, Dentition Intact, Facial Symmetry, Neck Supple, Neck: Trachea Midline, No JVD and No Thyromegaly, no Bruits
Respiratory: Clear to auscultation bilaterally with normal lung exersion
Cardiac: S1/S2 and Regular Rate/Rhythm
Breast: Deferred by me
Abdomen: Soft, Nontender, Nondistended, Normal Bowel Sounds and No Hepatosplenomegaly
Rectal: Deferred by Provider
Genito-urinary: No Costovertebral Tenderness
Extremities: No Clubbing, No Cyanosis and No Edema
Skin: No Rash or open lesions
Neuro: Nonfocal/Grossly Intact, CN II-XII (Intact) and Strength (Musculoskeletal exam 5 out of 5 both upper and lower extremities)
Hematologic/Lymphatic: No Cervical Lymphadenopathy, No Submandibular Lymphadenopathy and No Supraclavicular Lymphadenopathy
Psych: Mood/afflect pleasant, Insight/judgement good and Appropriate
Vascular: plus 2 pedal and radial pulses
Data Reviewed
-
CT Scan: Report Reviewed by me (CAT scan of head reviewed no acute intracranial abnormality notable for moderate cortical atrophy)
Medical Tests (Nuc Med, Echo etc): Other (EKG report reviewed sinus rhythm left bundle branch block 65 bpm)
Labs: Labs Reviewed by me (BMP CBC CPK urinalysis)
Old Records: Reviewed (Reviewed prior records in the EMR from date 10/06/2024 creatinine 1)
Assessment/Plan
-
Impression:
Acute kidney (2.2) b/l ~1.1
History of HTN
Gapped and predominantly non gapped metabolic acidosis
CPK 1248 found down ` 12hrs
Diarrhea
Plan:
BOBBY:
-Suspect prerenally mediated in the setting of GI losses while on SGLT2 inhibitor and ARB (hold both)
- Predominantly nongapped metabolic acidosis likely due to ongoing GI losses from diarrhea
- Accurate I's and O's with daily weights, bladder scan if urine output drops
- Concur with alkaline IV fluids (sodium bicarbonate in sterile water 150 mill equivalents per liter at 150 cc/hr)
-Check fractional excretion of sodium
- Cautiously observe volume status as patient has had a prior history of congestive heart failure
[2025-01-31] MEDS: NSS 500 IV (16:16)
[2025-01-31] MEDS: SODIUM BICARBONATE 1150 MEQ IV (18:10)
[2025-01-31 21:02] VITALS: BP 125/51; BMI 23.8
[2025-01-31] MEDS: MELATONIN PO ×2 (22:35→23:12)
[2025-01-31] MEDS: VISBIOME PO ×2 (22:40→23:12)
[2025-01-31] MEDS: LIPITOR PO ×2 (22:40→23:11)
[2025-01-31] MEDS: COREG PO ×2 (22:43→23:11)
[2025-01-31] MEDS: NORVASC PO ×2 (22:43→23:12)
[2025-01-31] MEDS: XALATAN OPHTHALMIC SOLUTION BOTH EYES ×2 (22:44→23:12)
[2025-01-31] MEDS: DESENEX/MITRAZOL/ZEASORB TOPICAL (23:29)
[2025-01-31 23:48] VITALS: BP 130/43
[2025-02-01] VITALS (9 sets, daily range): BP systolic 97–146; BP diastolic 48–62; PULSE 63; O2SAT 98; BMI 24.0
[2025-02-01 00:13] LABS: Blood Urea Nitrogen 61 mg/dl (7-17); Calcium 9.7 mg/dl (8.4-10.2); Carbon Dioxide 17 mmol/L (22-30); Chloride 109 mmol/L (98-107); Estimated Creatinine Clearance 22 ml/min; Glucose 118 mg/dl (70-99); Potassium 4.9 mmol/L (3.5-5.1); Sodium 135 mmol/L (135-145); eGFR 32.00
[2025-02-01] MEDS: HEPARIN SC (00:25)
--- NOTE | 2025-02-01 00:30 | TRANSFER ---
Pt transferred to 3w from ed. Pt ambulated from stretcher to hospital bed with rolling walker. Son and daughter at bedside to answer admission questions while Pt is calm and resting. Pt oriented to self only. Bed alarm placed, Pt and family oriented
to room, call roblero within reach, plan of care ongoing.
--- NOTE | 2025-02-01 00:32 | PTCARENOTE ---
Upon family leaving Pt became increasingly confused and agitated. Pt refused all Hs meds and made numerous attempts to climb out of bed. When asked orientation questions Pt states '[place] am in [place] [employer], and you cant keep me here. I am leaving.'
Pt is undetectable and refuses to stay in hospital bed. This Rn contacted [employer] for restraint order for Pt safety concerns.
[2025-02-01 05:41] LABS: Hematocrit 36.1 % (37.0-47.0); Hemoglobin 12.3 g/dL (12.0-16.0); Mean Corp Hgb Conc. 34.1 g/dL (33.0-37.0); Mean Corpuscular Volume 82.8 fL (81.0-99.0); Platelet Count 233 10^3/uL (130-400); Red Cell Dist. Width 12.7 % (11.5-14.5)
[2025-02-01 06:13] LABS: Blood Urea Nitrogen 52 mg/dl (7-17); Calcium 9.2 mg/dl (8.4-10.2); Carbon Dioxide 23 mmol/L (22-30); Chloride 107 mmol/L (98-107); Estimated Creatinine Clearance 26 ml/min; Glucose 119 mg/dl (70-99); Potassium 4.1 mmol/L (3.5-5.1); Sodium 137 mmol/L (135-145); eGFR 37.56
--- NOTE | 2025-02-01 07:51 | W.PN.HOSP.TC ---
Addendum entered and electronically signed by Tate Mederos DO 02/02/25 13:16:
CDI:
-Stage I sacral pressure injury, POA
-Metabolic encephalopathy, POA
Original Note:
Today's Communication/Plan
-
- Hold home dapagliflozin, lisinopril, spironolactone
- Plan to restart dapagliflozin & lisinopril tomorrow
- Plan to hold spironolactone at discharge & determine restart w outpatient f/u
- Consider IVF NS bolus 250cc if pt continues to feel dehydrated after eating/drinking by this afternoon
- FeNa pending
- Trend Cr, CMP
- Nephrology following, appreciate recs
- Likely discharge tomorrow
Assessment / Plan
Assessment / Plan
Susannah Rhodes is an 84yo F with pmh notable for HTN, HLD, HFrEF, paroxysmal SVT, CKD IIIa, ASCVD who presents after being found on the floor in s/o 3-5 days watery diarrhea, found to have BOBBY & rhabdomyolysis.
#BOBBY
#CKD IIIa
On presentation, Cr elevated to 2.2 from 1.1 baseline. Admission labs: Na 135, Cl 112, HCO3 7, albumin 4.4. Albumin corrected anion gap 15. Slightly elevated anion gap but predominantly non-gap metabolic acidosis. Likely combined anion gap &
hyperchloremic metabolic acidosis 2/2 prerenal etiology in s/o significant volume loss from days of watery diarrhea. Also potential gap component of BOBBY 2/2 rhabdo w elevated CPK. Avg RR ranging 16-18. Cr downtrending today 2.2>1.6>1.4. Lytes
normalized. Pt complaining of feeling dehydrated. Must balance additional IVF repletion with CHF & HTN.
- Hold home dapagliflozin, lisinopril, spironolactone
- Plan to restart dapagliflozin & lisinopril tomorrow
- Plan to hold spironolactone at discharge & determine restart w outpatient f/u
- Monitor I&Os, daily weights
- S/p 1 bag alkaline IVF (sodium bicarbonate in sterile water 150 mill equivalents per liter at 150 cc/hr)
- Consider IVF NS bolus 250cc if pt continues to feel dehydrated after eating/drinking by this afternoon
- FeNa pending
- Consider bladder scan if urine output drops
- Trend Cr, CMP
- Nephrology following, appreciate recs
#Diarrhea
3-5 day hx of watery diarrhea leading up to presentation. Afebrile, normotensive on admission. WBC 14.2 on admission, down to 10.3 today. Daughter states that pt had completed abx (unknown which) for UTI 1-2 months prior. Pt has not had BM since
admission, c diff less likely. If watery stools redevelop, will send c diff.
- Check c diff if diarrhea returns, pending
- Continue supportive care, monitor volume status
#Rhabdo in s/o fall
Pt lives at SNF. Was on phone with daughter 01/30 evening around 1900 and reported she needed to get off phone to use restroom, this is the last known time of patient having been ok. She was then found by facility staff early am 01/31 around 0800 on
floor under her bed, covered in feces. CPK elevated to [address] head 01/31 without intracranial bleed. CPK downtrended to 847 today.
- S/p 1 bag alkaline IVF (sodium bicarbonate in sterile water 150 mill equivalents per liter at 150 cc/hr)
- PT/OT consulted
- Continue to trend CPK
#Fatigue, chills
Pt complains of being cold on presentation, w slightly AMS and fatigue. Recent urine culture within the past year demonstrates Klebsiella pansensitive; hx pseudomonas UTI. Denied fever, cough, shortness of breath, chest pain, nausea, vomiting or
urinary symptoms on admission. CXR 01/31 without abnormalities. Likely 2/2 diarrhea. Per daughter, often presents w UTI like this, will r/o UTI. UA with 1+ leuk esterase and WBC <5 - UTI unlikely.
- Supportive care for diarrhea as above
- Urine cx pending
- S/p 1000mg ceftriaxone in ED, holding
#Chronic issues
- HTN: continue amlodipine, holding lisinopril
- HLD: continue atorvastatin
- HFrEF: holding spironolactone, dapagliflozin
- SVT: continue carvedilol
- ASCVD: continue aspirin
#Global
- DVT ppx: subq heparin give eGFR<30 on admission
- Diet: regular
- Code: full
- Dispo: to [facility], pending resolution of BOBBY, volume status; likely tomorrow; daughter requesting PT/OT at [facility] - to t/b w case mgmt
Anticipated Discharge: Within 24 hours
Subjective/Interval History
-
Date of Service: February 01, 2025
Patient awake and alert this morning, with daughter at bedside. Patient states that she feels 'crappy' but denies any pain, denies nausea or vomiting. Has not had any bowel movements/diarrhea since admission, last BM yesterday morning at [facility]. Bad
feeling primarily due to fatigue, endorses chills/feeling cold. Denies feeling feverish. Endorses very dry mouth, thirst. Daughter in process of helping her order breakfast at time of conversation.
Objective Data
-
Labs:
Laboratory Results
01/31/25 02/01/25 02/01/25
23:43 02:45 05:17
WBC 10.3
Hgb 12.3
Hct 36.1 L
Plt Count 233
Sodium 135 Cancelled 137
Potassium 4.9 Cancelled 4.1
Chloride 109 H Cancelled 107
Carbon Dioxide 17 L Cancelled 23
BUN 61 H Cancelled 52 H
Creatinine 1.6 H Cancelled 1.4 H
Glucose 118 H Cancelled 119 H
Calcium 9.7 Cancelled 9.2
02/01/25
08:45
WBC
Hgb
Hct
Plt Count
Sodium Cancelled
Potassium Cancelled
Chloride Cancelled
Carbon Dioxide Cancelled
BUN Cancelled
Creatinine Cancelled
Glucose Cancelled
Calcium Cancelled
Vital Signs:
Vital Signs
Temp Pulse Resp BP Pulse Ox
97.5 F 64 16 138/53 100
02/01/25 03:33 02/01/25 03:33 02/01/25 03:33 02/01/25 03:33 02/01/25 03:33
I&O
01/31/25 02/01/25 02/02/25
06:59 06:59 06:59
Intake Total 120 / 120
Balance 120 / 120
Review of Systems
-
History Source: Patient and Family (daughter)
Constitutional: Reports Fever (Denies), Fatigue and Chills
EENT: Reports Other (Dry mouth and lips)
Cardiac: Reports Chest Pain (Denies)
Abdomen/GI: Reports Nausea (Denies), Vomiting (Denies) and Diarrhea (None since yesterday morning)
Genitourinary: Reports Other (Denies pain with urination)
Physical Exam
-
General: Well Nourished, Comfortable (Appears somewhat uncomfortable, fatigued), Chills (No appreciable chills, shaking) and Conversant
HEENT: Normocephalic, Atraumatic, Moist Mucous Membranes (Moderately dry mucous membranes) and Anicteric
Respiratory: Clear to Auscultation and Non Labored Respirations
Cardiac: Regular Rhythm
GI: Soft, Nontender and Nondistended
Musculoskeletal: No Edema
Skin: Warm and Dry
Neuro: AO x 3
Psych: Calm
Data Reviewed
-
Total Time Spent with Patient (in minutes): 15
Critical Care Time (in minutes): 45
Diagnostic Radiology: Report Reviewed by me, Discussed with Patient and Discussed with Family
CT Scan: Report Reviewed by me, Discussed with Patient and Discussed with Family
Labs: Labs Reviewed by me, Discussed with Patient and Discussed with Family
[2025-02-01] MEDS: COREG 12.5 MG PO ×2 (09:24→20:52)
[2025-02-01] MEDS: LOW STRENGTH ASPIRIN 81 MG PO (09:24)
[2025-02-01] MEDS: HEPARIN 5000 UNITS SC ×2 (09:24→16:53)
[2025-02-01] MEDS: NON-FORMULARY ITEM 1 UNIT TOPICAL ×2 (09:26→20:57)
[2025-02-01] MEDS: DESENEX/MITRAZOL/ZEASORB 1 APPLIC TOPICAL ×2 (09:26→20:54)
[2025-02-01] MEDS: VISBIOME 1 CAP PO ×2 (09:26→20:58)
--- NOTE | 2025-02-01 10:22 | WOUNDNOTE ---
[facility] RN NOTE: Reviewed chart and met with patient and daughter. Patient resides at [facility] and gets assistance PRN in her apartment. Patient admitted with stage 1 PI to sacrum and heels. MASD also noted on buttocks, sacral crease, and groin.
Desenex powder has been ordered and is in use currently. Patient wears Depends and brought them into hospital. This typewriter tester suggested more frequent changes of Depends along with continued incontinence care with barrier ointment. No-sting barrier and
adhesive foam applied to bilateral heels. Heels off-loaded with pillow and air cushion under calves. Turning schedule added to care plan. This typewriter tester called Bed tech for air bed delivery as patient demonstrated poor mobility with turning, is
incontinent of urine and already has compromised skin. Patient reports fair appetite. RN Birdie given update. Will confirm orders and follow as needed.
--- NOTE | 2025-02-01 13:28 | W.PN.NEPH.PH ---
Today's Communication / Plan
-
IV fluids for 1 more bag
Follow BMP
Assessment/Plan
-
Impression:
Acute kidney (2.2) b/l ~1.1
History of HTN
Gapped and predominantly non gapped metabolic acidosis
CPK 1248 found down ` 12hrs
Diarrhea
Plan:
BOBBY:
-Creatinine returning towards baseline at 1.4, urine output not recorded
-Suspect prerenally mediated in the setting of GI losses while on SGLT2 inhibitor and ARB (hold both)
- Predominantly nongapped metabolic acidosis likely due to ongoing GI losses from diarrhea now resolved
- Accurate I's and O's with daily weights, bladder scan if urine output drops
- Will continue IV fluids another day
- Cautiously observe volume status as patient has had a prior history of congestive heart failure
-
-
Date of Service: February 01, 2025
CC / HPI / ROS
-
Chief Complaint:
BOBBY
History of Present Illness:
Remains hemodynamically labile
Creatinine down to 1.4
Metabolic acidosis
Review of Systems:
Lethargic but will answer questions
No fevers
No reported chest pain or shortness of breath
Labs
-
Labs:
WBC 10.3 10^3/uL (4.8-10.8) 02/01/25 05:17
RBC 4.36 10^6/uL (4.20-5.40) 02/01/25 05:17
Hgb 12.3 g/dL (12.0-16.0) 02/01/25 05:17
Hct 36.1 % (37.0-47.0) L 02/01/25 05:17
Plt Count 233 10^3/uL (130-400) 02/01/25 05:17
Sodium Cancelled 02/01/25 08:45
Potassium Cancelled 02/01/25 08:45
Chloride Cancelled 02/01/25 08:45
Carbon Dioxide Cancelled 02/01/25 08:45
BUN Cancelled 02/01/25 08:45
Creatinine Cancelled 02/01/25 08:45
eGFR Cancelled 02/01/25 08:45
Glucose Cancelled 02/01/25 08:45
Calcium Cancelled 02/01/25 08:45
Albumin 4.4 g/dl (3.5-5.0) 01/31/25 12:08
Physical Exam
-
Vital Signs:
Vital Signs
Temp Pulse Resp BP Pulse Ox
97.5 F 63 15 99/48 99
02/01/25 11:00 02/01/25 11:00 02/01/25 11:00 02/01/25 11:00 02/01/25 11:00
Cardiovascular:: Regular rate and rhythm
Respiratory:: Bilateral: CTA
Lung Excursion:: Normal
Abdomen:: Nontender and Soft
Bowel Sounds:: Normal
Extremity Edema:: None: Bilateral:
Pacheco Catheter: No
[2025-02-01] MEDS: NSS 1000 IV (14:21)
[2025-02-01] MEDS: LIPITOR 40 MG PO (16:53)
[2025-02-01] MEDS: XALATAN OPHTHALMIC SOLUTION 1 DROP BOTH EYES (21:01)
[2025-02-01] MEDS: MELATONIN 5 MG PO (21:01)
[2025-02-01] MEDS: NORVASC 5 MG PO (21:01)
[2025-02-02] MEDS: HEPARIN SC ×2 (01:50→08:54)
[2025-02-02 03:06] VITALS: BP 98/54
[2025-02-02 05:38] LABS: Hematocrit 30.2 % (37.0-47.0); Hemoglobin 10.5 g/dL (12.0-16.0); Mean Corp Hgb Conc. 34.8 g/dL (33.0-37.0); Mean Corpuscular Volume 83.9 fL (81.0-99.0); Nucleated Red Blood Cells % 0 %; Platelet Count 196 10^3/uL (130-400); Red Cell Dist. Width 12.7 % (11.5-14.5)
[2025-02-02 06:00] VITALS: BMI 24.4
[2025-02-02 06:02] LABS: ALT (SGPT) 16 U/L (0-35); AST (SGOT) 30 U/L (14-36); Albumin 3.0 g/dl (3.5-5.0); Alkaline Phosphatase 51 U/L (38-126); Blood Urea Nitrogen 35 mg/dl (7-17); Calcium 8.6 mg/dl (8.4-10.2); Carbon Dioxide 21 mmol/L (22-30); Chloride 112 mmol/L (98-107); Estimated Creatinine Clearance 33 ml/min; Glucose 95 mg/dl (70-99); Potassium 4.1 mmol/L (3.5-5.1); Sodium 137 mmol/L (135-145); Total Protein 4.8 g/dl (6.3-8.2); eGFR 50.17
--- NOTE | 2025-02-02 07:43 | W.PN.HOSP.TC ---
Today's Communication/Plan
-
- Discharge today
- Given low BPs, continue holding home lisinopril & spironolactone
- Plan for f/u outpatient w cards in 1 week for long-term mgmt
- Plan for monitor weight outpatient & check BMP in 5 days
- Restart home dapagliflozin
- S/p 1 bags alkaline IVF & additional 1000ml NSS 02/01
- FeNa pending
- Trend Cr, CMP
- Monitor I&Os, daily weights
- Consider bladder scan if urine output drops
- Nephrology following, appreciate recs
Assessment / Plan
Assessment / Plan
Susannah Rhodes is an 84yo F with pmh notable for HTN, HLD, HFrEF, paroxysmal SVT, CKD IIIa, ASCVD who presents after being found on the floor in s/o 3-5 days watery diarrhea, found to have BOBBY & rhabdomyolysis, now improved s/p fluids & supportive
care.
#BOBBY, improving
#CKD IIIa
On presentation, Cr elevated to 2.2 from 1.1 baseline. Admission labs: Na 135, Cl 112, HCO3 7, albumin 4.4. Albumin corrected anion gap 15. Slightly elevated anion gap but predominantly non-gap metabolic acidosis. Likely combined anion gap &
hyperchloremic metabolic acidosis 2/2 prerenal etiology in s/o significant volume loss from days of watery diarrhea. Also potential gap component of BOBBY 2/2 rhabdo w elevated CPK. Avg RR ranging 16-18. Cr downtrending today 2.2>1.6>1.4>1.1 - back to
baseline. Cl uptrended: 112>109>107>112. Bicarb downtrended: 17>23>21. Likely 2/2 NS infusion yesterday. BP low this am, 90s/50s until back up to 121/50.
- Given low BPs, continue holding home lisinopril & spironolactone
- Plan for f/u outpatient w cards in 1 week for long-term mgmt
- Plan for monitor weight outpatient & check BMP in 5 days
- Restart home dapagliflozin
- S/p 1 bags alkaline IVF & additional 1000ml NSS 02/01
- FeNa pending
- Trend Cr, CMP
- Monitor I&Os, daily weights
- Consider bladder scan if urine output drops
- Nephrology following, appreciate recs
#Diarrhea, resolved
3-5 day hx of watery diarrhea leading up to presentation. Afebrile, normotensive on admission. WBC 14.2 on admission, down to 10.3 today. Daughter states that pt had completed abx (unknown which) for UTI 1-2 months prior. Pt has not had BM since
admission, c diff less likely. If watery stools redevelop, will send c diff.
- Check c diff if diarrhea returns, pending
- Continue supportive care, monitor volume status
#Rhabdo in s/o fall
Pt lives at SNF. Was on phone with daughter 01/30 evening around 1900 and reported she needed to get off phone to use restroom, this is the last known time of patient having been ok. She was then found by facility staff early am 01/31 around 0800 on
floor under her bed, covered in feces. CPK elevated to [address] head 01/31 without intracranial bleed. CPK downtrended to 847 at last lab value.
- PT/OT consulted
- Supportive care as above
#Fatigue & chills, resolving
Pt complains of being cold on presentation, w slightly AMS and fatigue. Recent urine culture within the past year demonstrates Klebsiella pansensitive; hx pseudomonas UTI. Denied fever, cough, shortness of breath, chest pain, nausea, vomiting or
urinary symptoms on admission. CXR 01/31 without abnormalities. Likely 2/2 diarrhea. Per daughter, often presents w UTI like this, will r/o UTI. UA with 1+ leuk esterase and WBC <5, urine cx negative.
- Supportive care as above
- S/p 1000mg ceftriaxone in ED, holding
#Pressure ulcers
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 All stage 1.
- Wound care following inpt
#AMS, resolved
Pt thought to have metabolic encephalopathy on presentation 2/2 metabolic acidosis as described above. Pt with confusion in evenings likely 2/2 dementia, , as lytes resolved & without c/f encephalopathy today 02/02.
- Continue to monitor
#Chronic issues
- HTN: continue amlodipine, holding lisinopril
- HLD: continue atorvastatin
- HFrEF: holding spironolactone, dapagliflozin
- SVT: continue carvedilol
- ASCVD: continue aspirin
#Global
- DVT ppx: subq heparin give eGFR<30 on admission
- Diet: regular
- Code: full
- Dispo: to [facility], pending resolution of BOBBY, volume status; likely tomorrow; daughter requesting PT/OT at [facility] - to t/b w case mgmt
Anticipated Discharge: Today
Subjective/Interval History
-
Date of Service: February 02, 2025
Pt lively this am. Out of bed in chair, about to eat bfast. Son at bedside today. Pt states that she's feeling much better. Has had no BM since being inpt. Feels less dehydrated today. No pain. No n/v with eating yesterday.
Objective Data
-
Labs:
Laboratory Results
02/02/25
05:24
WBC 6.8
Hgb 10.5 L
Hct 30.2 L
Plt Count 196
Sodium 137
Potassium 4.1
Chloride 112 H
Carbon Dioxide 21 L
BUN 35 H
Creatinine 1.1 H
Glucose 95
Calcium 8.6
Total Bilirubin 0.4
AST 30
ALT 16
Alkaline Phosphatase 51
Vital Signs:
Vital Signs
Temp Pulse Resp BP Pulse Ox
98.7 F 58 16 98/54 94
02/02/25 03:06 02/02/25 03:06 02/02/25 03:06 02/02/25 03:06 02/02/25 03:06
I&O
02/01/25 02/02/25 02/03/25
06:59 06:59 06:59
Intake Total 120 / 120 480 / 480
Balance 120 / 120 480 / 480
Review of Systems
-
History Source: Patient and Family
Constitutional: Reports No Symptoms
EENT: Reports No Symptoms Reported
Abdomen/GI: Reports No Symptoms
Physical Exam
-
General: Well Developed, Well Nourished and Conversant
HEENT: Normocephalic, Atraumatic and Anicteric
Respiratory: Clear to Auscultation and Non Labored Respirations
Cardiac: Regular Rhythm
GI: Nondistended
Musculoskeletal: No Edema
Skin: Warm, Dry and Ulcers (stage 1 pressure ulcers on sacrum & bilat heels, erythema of skin without drainage/breakage)
Neuro: Awake, Alert and Oriented
Psych: Calm
Data Reviewed
-
Total Time Spent with Patient (in minutes): 10
Critical Care Time (in minutes): 35
Labs: Labs Reviewed by me
[2025-02-02 07:52] VITALS: BP 121/50
[2025-02-02] MEDS: NON-FORMULARY ITEM 1 UNIT TOPICAL (08:54)
[2025-02-02] MEDS: VISBIOME 1 CAP PO (08:54)
[2025-02-02] MEDS: COREG 12.5 MG PO (08:54)
[2025-02-02] MEDS: LOW STRENGTH ASPIRIN 81 MG PO (08:54)
[2025-02-02] MEDS: DESENEX/MITRAZOL/ZEASORB 1 APPLIC TOPICAL (08:57)
--- NOTE | 2025-02-02 10:08 | PN.CDI ---
CDI
- -
CDI:
Physician Documentation Request
Admit Date: 01/31/25 16:23
Dear Doctor,
Please review the following and provide your response in the progress notes.
Clinical Indicators:
Pt admitted with BOBBY and rhabdomyolysis.
01/31 Update Note: ' - Found on floor under the bed this AM - unknown duration fall
- Family states she is slightly confused.
- has had diarrhea for the past several days.
Generalized Weakness
Multifactorial encephalopathy
- NEG UA
- correct Acid base disorder
- IVF '
02/01 RN Note: ' Upon family leaving Pt became increasingly confused and agitated. Pt refused all Hs meds and made numerous attempts to climb out of bed. When asked orientation questions Pt states 'I am in the [employer] [employer], and you cant keep me here. I
am leaving.' Pt is undetectable and refuses to stay in hospital bed. This Rn contacted REFRIGERATOR ROOM CLERK for restraint order for Pt safety concerns. '
Laboratory Tests
01/31/25 01/31/25 02/01/25
12:08 23:43 05:17
Carbon Dioxide 7 L* 17 L
Creatinine 2.2 H 1.6 H
Creatine Kinase 1248 H 847 H
Based on the above, could you clarify in the Progress Notes and Discharge Summary which, if any of the following, is the most likely type of Encephalopathy.
Metabolic Encephalopathy
Toxic/Metabolic Encephalopathy
Toxic Encepalopathy
Other
Use of terms such as suspected, likely, concern for, or probable (associated with a specific diagnosis that is being evaluated, monitored, or treated as if it exists) are acceptable and can be coded in the inpatient setting, when documented at the
time of discharge.
Thank you,
Kylie Xavier RN, BSN
CDI Specialist
[place] [facility]
Please use your independent medical judgment in providing your response.
--- NOTE | 2025-02-02 10:19 | PN.CDI ---
CDI
- -
CDI:
Physician Documentation Request
Admit Date: 01/31/25 16:23
Dear Doctor,
Please review the following and provide your response in the progress notes.
Clinical Indicators:
Pt admitted with BOBBY and rhabdomyolysis.
02/01 [facility] RN: ' Patient admitted with stage 1 PI to sacrum and heels.'
Physician documentation of the type and location of wounds is required for compliant documentation. Based on the above clinical findings and your assessment, please provide the following in your progress note:
1. Location of the ulcer/wound, including laterality.
2. Type (etiology) of ulcer/wound:
Stage 1 pressure injury to sacrum and bilateral heels POA
Non-pressure injury to sacrum and bilateral heels POA
Other
Use of terms such as suspected, likely, concern for, or probable (associated with a specific diagnosis that is being evaluated, monitored, or treated as if it exists) are acceptable and can be coded in the inpatient setting, when documented at the
time of discharge.
Thank you,
Kylie Xavier RN, BSN
CDI Specialist
[place] [facility]
Please use your independent medical judgment in providing your response.
*Source: National Pressure Ulcer Advisory Panel (NPUAP)
[2025-02-02 11:26] VITALS: BP 103/50
[2025-02-02 11:41] VITALS: BP 106/52; BP 87/49; BP 98/55; PULSE 65; PULSE 68; O2SAT 97
--- NOTE | 2025-02-02 12:20 | CM ---
Met with patient and son
IA completed
Lives at the [facility]
PLOF: Independent with walker
DME: [employer] shower chair
Has had [facility]OT in past/[facility] in past
spoke with Pon[facility] at [facility]-reviewed PT/OT notes
ok for her to discharge back to [facility] with [facility]
Referral entered in careport
son at bedside, IMM explained & signed
PCP: Dr. Ta
Pharmacy: [facility]
PLAN: [facility]
report #: [phone] ask for nsg, Fax #: [phone]
[facility] fax #: [phone]
--- NOTE | 2025-02-02 13:08 | W.DCSUMMARY ---
Documented by User: Yaneli Santana MD, Resident 02/02/25 13:26
Discharge Summary
Discharge Data
Date of Admission: 01/31/25
Date of Discharge: 02/02/25
Total time spent discharging patient (in min): 35
-
Pending Results: Yes
Hospital Course
Discharging Physician : Tate Mederos; Yaneli Santana
Disposition : to [facility]
Primary care physician : Sean Ta
Principal Discharge diagnoses : prerenal BOBBY on CKDIIIa in s/o subacute diarrhea; rhabdomyolysis; metabolic encephalopathy; hypotension
Chronic Discharge diagnoses : stage 1 pressure ulcers; hypertension; hyperlipidemia; HFrEF; SVT; ASCVD
Hospital Course :
Patient presented after 3-5 days of large-volume watery diarrhea. Came from [facility] after being found on the floor covered in stool. Unknown how long on floor, daughter had last spoken to her on the phone the evening prior to admission.
On presentation, Cr found to be elevated to 2.2 from 1.1 baseline. Admission labs: Na 135, Cl 112, HCO3 7, albumin 4.4. Albumin corrected anion gap: 15. Slightly elevated anion gap, but predominantly non-gap metabolic acidosis. Thought to be
combined anion gap & hyperchloremic metabolic acidosis 2/2 prerenal etiology in s/o significant volume loss from days of preceding watery diarrhea. Also potential gap component of BOBBY 2/2 rhabdo w elevated CPK. Patient was given alkaline IV fluids
and additional normal saline boluses over course of stay. Labs normalized and creatinine trended down to 1.1 baseline on day of discharge.
Patient with rhabdomyolysis on presentation with elevated CPK to 1248, in setting of fall and time down on ground. CPK down trended to 847 at last lab value s/p supportive care as above.
Patient complained of fatigue and chills on presentation and had altered mental status on presentation. AMS thought to be secondary to metabolic encephalopathy given metabolic acidosis and electrolyte abnormalities noted above. Patient with normal
mental status on exam on days following admission. Some confusion at night likely secondary to sundowning in the setting of dementia, unfamiliar setting. Patient afebrile throughout presentation. Leukocytosis on admission (14.2) thought to be
secondary to inflammatory state rather than infection. Patient with no diarrhea or bowel movements throughout admission. C. difficile ordered but never sent given no diarrhea. Workup to rule out concurrent infectious etiology of initial chills
and AMS included CXR which demonstrated no abnormalities and urinalysis and urine culture which demonstrated no UTI.
Home lisinopril, spironolactone, dapagliflozin were held in the setting of low volume status on admission and BOBBY. Patient with low blood pressure on morning of admission (90s/50s) which uptrended to 121/50 at time of discharge. Given hypotension
in the morning, opted to continue holding lisinopril and spironolactone on discharge. Restarted home dapagliflozin on discharge. All other home meds remain the same on discharge. Recommended follow-up with outpatient senior ui designer and primary care
physician within 1 week of discharge to evaluate long-term medication regimen. Ordered BMP labs for 5 days postdischarge. Instructed patient to alert PCP with weight change more than 3 pounds in 24 hours or more than 5 pounds in 1 week during the
week post-discharge.
Patient with chronic stage I pressure ulcers in the sacral area and on bilateral posterior heels. Patient seen by wound care while inpatient; wound care instructions included in discharge packet for patient. Ordered nystatin powder to be applied
to wounds as needed.
Important imaging findings : Head CT on admission (01/31) demonstrated no intracranial bleed. Chest x-ray on admission (01/31) demonstrated no abnormal findings.
Procedure findings : N/A
Discharge Plan
-
Patient Disposition: Assisted Living
Discharge Diagnosis/Procedures: prerenal BOBBY on CKD IIIa in s/o diarrhea/volume loss; rhabdomyolysis in s/o fall
Condition: Good
Diet: Low Cholesterol and Low Sodium
Activity: No restrictions
Driving Restrictions: As prior to admission
Bathing Restrictions: None
Blood Work: BMP in 5 days
Wound Care: for stage 1 pressure ulcers on sacrum & heels (see instructions below)
Specialty Instructions: Weigh Daily- Call MD for wt gain/loss 3 lbs overnight/5 lbs in 1 week
Activity Restrictions/Additional Instructions:
1. Please get bloodwork done in 5 days & discuss results with your primary care doctor & outpatient senior ui designer in ~[address] Ta if you have a weight gain or loss of more than 3 pounds in 24hrs or 5 points in 1 week
3. Follow medication instructions outlined in the section below
4. Wound Care Instructions:
Sacrum/Groin- Clean skin with incontinence care and change Depends several times daily. Apply Barrier ointment and antifungal powder (nystatin) PRN
Bilateral scwju-Dy-madbq barrier and adhesive foam. Change Q 3 days and PRN
Air cushion or gel cushion to chair
Referrals:
Alex Bee MD [Active, Cardiology] - in one week
Sean Ta MD [Family Provider, Family Practice] - in one week
Additional Discharge Medication Instructions: -Continue taking your home dose of farxiga
-DO NOT take your home dose of lisinopril and spironolactone until you see your outpatient senior ui designer and your primary care doctor (should see them in 1 week)
-Be sure to get bloodwork done in 5 days (prescription for 'BMP') and bring your lab results to those two appointments.
Prescriptions:
New
miconazole nitrate [Miconazorb AF] 2 % Powder
1 applic topical BID Qty: 85 0RF
Continued
latanoprost 0.005 % Drops
1 drp BOTH EYES HS
atorvastatin 40 mg Tablet
40 mg PO QPM
carvedilol [Coreg] 12.5 mg Tablet
12.5 mg PO BID
zinc oxide 20 % Ointment
1 applic TOPICAL BID
melatonin 5 mg Tablet
5 mg PO HS
dapagliflozin propanediol [Farxiga] 10 mg Tablet
10 mg PO DAILY
fluorouracil 5 % cream
1 applic TOPICAL BID
amlodipine 5 mg Tablet
5 mg PO HS
aspirin 81 mg Tablet,Chewable
81 mg PO DAILY
Align (B.infantis) 10.5 mg (10 million cell) Tablet,Chewable
10.5 mg PO BID
Held
lisinopril 40 mg Tablet
40 mg PO DAILY
Hold Instructions: Resume on 02/12/25. Hold this medication until you see your outpatient senior ui designer & primary care doctor (in ~1 week) and discuss plan with them
spironolactone 25 mg Tablet
50 mg PO QPM Qty: 30 0RF
Hold Instructions: Resume on 02/12/25. Hold this medication until you see your outpatient senior ui designer & primary care doctor (in ~1 week) and discuss plan with them
Discharge Orders:
Discharge Patient (As Directed); Ordered 02/02/25
Ordered By: Yaneli Santana
Discharge Date and Time
Print Language: TOGOLESE

Documented by User: Tate Mederos DO 02/02/25 14:48
Discharge Summary
Discharge Data
Date of Admission: 01/31/25
Date of Discharge: 02/02/25
Discharge Plan
-
Patient Disposition: Assisted Living
Discharge Diagnosis/Procedures: prerenal BOBBY on CKD IIIa in s/o diarrhea/volume loss; rhabdomyolysis in s/o fall
Condition: Good
Diet: Low Cholesterol and Low Sodium
Activity: No restrictions
Driving Restrictions: As prior to admission
Bathing Restrictions: None
Blood Work: BMP in 5 days
Wound Care: for stage 1 pressure ulcers on sacrum & heels (see instructions below)
Specialty Instructions: Weigh Daily- Call MD for wt gain/loss 3 lbs overnight/5 lbs in 1 week
Activity Restrictions/Additional Instructions:
1. Please get bloodwork done in 5 days & discuss results with your primary care doctor & outpatient senior ui designer in ~[address] Ta if you have a weight gain or loss of more than 3 pounds in 24hrs or 5 points in 1 week
3. Follow medication instructions outlined in the section below
4. Wound Care Instructions:
Sacrum/Groin- Clean skin with incontinence care and change Depends several times daily. Apply Barrier ointment and antifungal powder (nystatin) PRN
Bilateral bsfsk-Ft-lnrsp barrier and adhesive foam. Change Q 3 days and PRN
Air cushion or gel cushion to chair
Referrals:
Alex Bee MD [Active, Cardiology] - in one week
Sean Ta MD [Family Provider, Family Practice] - in one week
Additional Discharge Medication Instructions: -Continue taking your home dose of farxiga
-DO NOT take your home dose of lisinopril and spironolactone until you see your outpatient senior ui designer and your primary care doctor (should see them in 1 week)
-Be sure to get bloodwork done in 5 days (prescription for 'BMP') and bring your lab results to those two appointments.
Prescriptions:
New
miconazole nitrate [Miconazorb AF] 2 % Powder
1 applic topical BID Qty: 85 0RF
Continued
latanoprost 0.005 % Drops
1 drp BOTH EYES HS
atorvastatin 40 mg Tablet
40 mg PO QPM
carvedilol [Coreg] 12.5 mg Tablet
12.5 mg PO BID
zinc oxide 20 % Ointment
1 applic TOPICAL BID
melatonin 5 mg Tablet
5 mg PO HS
dapagliflozin propanediol [Farxiga] 10 mg Tablet
10 mg PO DAILY
fluorouracil 5 % cream
1 applic TOPICAL BID
amlodipine 5 mg Tablet
5 mg PO HS
aspirin 81 mg Tablet,Chewable
81 mg PO DAILY
Align (B.infantis) 10.5 mg (10 million cell) Tablet,Chewable
10.5 mg PO BID
Held
lisinopril 40 mg Tablet
40 mg PO DAILY
Hold Instructions: Resume on 02/12/25. Hold this medication until you see your outpatient senior ui designer & primary care doctor (in ~1 week) and discuss plan with them
spironolactone 25 mg Tablet
50 mg PO QPM Qty: 30 0RF
Hold Instructions: Resume on 02/12/25. Hold this medication until you see your outpatient senior ui designer & primary care doctor (in ~1 week) and discuss plan with them
Discharge Orders:
Discharge Patient (As Directed); Ordered 02/02/25
Ordered By: Yaneli Santana
Discharge Date and Time
Print Language: TOGOLESE
--- NOTE | 2025-02-02 13:38 | W.PN.NEPH.PH ---
Today's Communication / Plan
-
ok for d/c
Assessment/Plan
-
Impression:
Acute kidney (2.2) b/l ~1.1
History of HTN
Gapped and predominantly non gapped metabolic acidosis
CPK 1248 found down ` 12hrs
Diarrhea
Plan:
BOBBY:
-Creatinine returned baseline at 1.1
-Suspect prerenally mediated in the setting of GI losses while on SGLT2 inhibitor and ARB (held both)
vol status seem stable though wt slightly up
could resume back on xiga
BP soft, hold ARB still, may need holding parameters for other antiHTN meds
need f/u labs out pt
d/w pt and son at bedside
-
-
Date of Service: February 02, 2025
CC / HPI / ROS
-
Chief Complaint:
BOBBY
History of Present Illness:
Remains hemodynamically labile
Creatinine down to 1.1
Metabolic acidosis improving to 21
Review of Systems:
No fevers
No reported chest pain or shortness of breath
walking in the room with walker
Labs
-
Labs:
WBC 6.8 10^3/uL (4.8-10.8) 02/02/25 05:24
RBC 3.60 10^6/uL (4.20-5.40) L 02/02/25 05:24
Hgb 10.5 g/dL (12.0-16.0) L 02/02/25 05:24
Hct 30.2 % (37.0-47.0) L 02/02/25 05:24
Plt Count 196 10^3/uL (130-400) 02/02/25 05:24
Sodium 137 mmol/L (135-145) 02/02/25 05:24
Potassium 4.1 mmol/L (3.5-5.1) 02/02/25 05:24
Chloride 112 mmol/L (98-107) H 02/02/25 05:24
Carbon Dioxide 21 mmol/L (22-30) L 02/02/25 05:24
BUN 35 mg/dl (7-17) H 02/02/25 05:24
Creatinine 1.1 mg/dL (0.6-1.0) H 02/02/25 05:24
eGFR 50.17 02/02/25 05:24
Glucose 95 mg/dl (70-99) 02/02/25 05:24
Calcium 8.6 mg/dl (8.4-10.2) 02/02/25 05:24
Albumin 3.0 g/dl (3.5-5.0) L 02/02/25 05:24
Physical Exam
-
Vital Signs:
Vital Signs
Temp Pulse Resp BP Pulse Ox
98.1 F 64 16 103/50 97
02/02/25 11:26 02/02/25 11:26 02/02/25 11:26 02/02/25 11:26 02/02/25 11:26
Cardiovascular:: Regular rate and rhythm
Respiratory:: Bilateral: CTA
Lung Excursion:: Normal
Abdomen:: Nontender and Soft
Bowel Sounds:: Normal
Extremity Edema:: None: Bilateral:
Pacheco Catheter: No
[2025-02-02 15:13] VITALS: BP 116/62
== END 2025-02-02 15:56 | disposition home health service (06) | DRG 557 ==
LOC: 3 WEST ACU 16:23
PROVIDERS: Nurse Practitioner Family; Physician Assistant; ADMITTING PHYSICIAN Internal Medicine; ATTENDING PHYSICIAN Internal Medicine; CONSULT PHYSICIAN Specialist; EMERGENCY PHYSICIAN Emergency Medicine; FAMILY PHYSICIAN Family Medicine
DX: M62.82 Rhabdomyolysis (principal); G93.41 Metabolic encephalopathy; N17.9 Acute kidney failure, unspecified; I13.0 Hypertensive heart and chronic kidney disease with heart failure and stage 1 through stage 4 chronic kidney disease, or unspecified chronic kidney disease; I50.22 Chronic systolic (congestive) heart failure; E87.20 Acidosis, unspecified; F05 Delirium due to known physiological condition; I47.10 Supraventricular tachycardia, unspecified; N18.31 Chronic kidney disease, stage 3a; L89.151 Pressure ulcer of sacral region, stage 1; E78.00 Pure hypercholesterolemia, unspecified; I25.10 Atherosclerotic heart disease of native coronary artery without angina pectoris; F03.90 Unspecified dementia, unspecified severity, without behavioral disturbance, psychotic disturbance, mood disturbance, and anxiety; Z87.440 Personal history of urinary (tract) infections; Z79.82 Long term (current) use of aspirin; W06.XXXA Fall from bed, initial encounter; Z79.84 Long term (current) use of oral hypoglycemic drugs; Z79.899 Other long term (current) drug therapy; L89.611 Pressure ulcer of right heel, stage 1; L89.621 Pressure ulcer of left heel, stage 1
CPT/HCPCS: 70450; 71046; 80048; 80053; 81003; 81015; 82550; 82962; 85025; 85027; 87070; 87086; 93005; 96361; 96374; 97110; 97163; 97167; 97530; 97535; 99285

== ENCOUNTER → 2025-03-21 09:43 | Outpatient (REF) | payer MEDICARE, OTHER, SELFPAY ==
[2025-03-21 12:32] LABS: Blood Urea Nitrogen 29 mg/dl (7-17); Calcium 9.9 mg/dl (8.4-10.2); Carbon Dioxide 23 mmol/L (22-30); Chloride 107 mmol/L (98-107); Glucose 96 mg/dl (70-99); Potassium 4.7 mmol/L (3.5-5.1); Sodium 134 mmol/L (135-145); eGFR 44.91
[2025-03-21 12:56] LABS: CKMB 3.3 ng/ml (0.0-3.4)
== END ==
LOC: HWLAB 09:43
PROVIDERS: ATTENDING PHYSICIAN Family Medicine
DX: T79.6XXD Traumatic ischemia of muscle, subsequent encounter (principal); I50.20 Unspecified systolic (congestive) heart failure
CPT/HCPCS: 36415; 80048; 82550; 82553

== ENCOUNTER → 2025-05-29 11:28 | Outpatient (REF) | payer MEDICARE, OTHER, SELFPAY ==
[2025-05-29 16:22] LABS: ALT (SGPT) 15 U/L (0-35); AST (SGOT) 20 U/L (14-36); Albumin 4.2 g/dl (3.5-5.0); Alkaline Phosphatase 75 U/L (38-126); Blood Urea Nitrogen 28 mg/dl (7-17); Calcium 9.7 mg/dl (8.4-10.2); Carbon Dioxide 21 mmol/L (22-30); Chloride 107 mmol/L (98-107); Glucose 90 mg/dl (70-99); HDL Cholesterol 53 mg/dl; LDL Cholesterol, Calculated 103 mg/dl; Potassium 4.7 mmol/L (3.5-5.1); Sodium 135 mmol/L (135-145); Total Protein 6.4 g/dl (6.3-8.2); Very Low Density Lipoprotein 18 mg/dl (0-30); eGFR 44.91
== END ==
LOC: HWLAB 11:28
PROVIDERS: ATTENDING PHYSICIAN Family Medicine; REFERRING PHYSICIAN Internal Medicine Cardiovascular Disease
DX: E78.2 Mixed hyperlipidemia (principal)
CPT/HCPCS: 36415; 80053; 80061